=== PATIENT | male | born 1945 | race Caucasian/White ===

== ENCOUNTER 2017-05-01 16:56 | Inpatient (IN) | payer MEDICARE ==
[2017-05-01 16:58] VITALS: BMI 26.5
--- NOTE | 2017-05-01 17:39 | ED PDOC ---
Arrival/HPI - General Chief Complaint: Fever Time Seen by Provider: 05/01/17 17:14 Historian: Patient - History of Present Illness Narrative History of Present Illness (Text): 05/01/17 17:10 A 72 year old male, whose past medical history includes anemia, hypertension, diabetes, sinusitis, s/p pacemaker, s/p laminectomy(03/22), is sent from [facility] for fever. Patient reports fever began last night with temperature of 101. Patient denies of any chills, shortness of breath, cough, nausea, vomiting , diarrhea, abdominal pain, constipation, congestions, sore throat, chest pain, dysuria, rash, or any other complaints at this time. Also, patient notes experiencing back pain around surgical sight, which has not changed. No PMD Past Medical History - Provider Review Nursing Documentation Reviewed: Yes - Infectious Disease Hx of Infectious Diseases: None - Cardiac Hx Hypertension: Yes Hx Pacemaker: Yes - Endocrine/Metabolic Hx Diabetes Mellitus Type 2: Yes - Hematological/Oncological Hx Anemia: Yes - Musculoskeletal/Rheumatological Hx Back Pain: Yes Hx Falls: Yes - Psychiatric Hx Substance Use: No - Surgical History Other/Comment: s/p laminectomy - Anesthesia Hx Anesthesia: Yes Hx Anesthesia Reactions: No Hx Malignant Hyperthermia: No Family/Social History - Physician Review Nursing Documentation Reviewed: Yes Family/Social History: No Known Family HX Smoking Status: Never Smoked Hx Alcohol Use: No Hx Substance Use: No Allergies/Home Meds Allergies/Adverse Reactions: Allergies No Known Allergies Allergy (Verified 05/01/17 16:58) Home Medications: Home Meds Medication Instructions Recorded Confirmed Atorvastatin [Lipitor] 1 tab PO DAILY 05/01/17 05/01/17 Bisacodyl [Dulcolax] 2 tab PO DAILY 05/01/17 05/01/17 Gabapentin [Neurontin] 1 tab PO TID 05/01/17 05/01/17 Insulin Aspart [Novolog Flexpen] See Protocol SC ACHS 05/01/17 05/01/17 Isosorbide Mononitrate [Isosorbide 60 mg PO DAILY 05/01/17 05/01/17 Mononitrate ER] Lidocaine [Lidocare] 1 patch TOP DAILY 05/01/17 05/01/17 Metoprolol Tartrate [Lopressor] 1 tab PO BID 05/01/17 05/01/17 Pantoprazole Sodium [Protonix] 1 tab PO DAILY 05/01/17 05/01/17 Ranitidine HCl [Zantac] 1 tab PO DAILY 05/01/17 05/01/17 Sitagliptin Phos/Metformin HCl 1 tab PO BID 05/01/17 05/01/17 [Janumet 50-500 mg Tablet] Tamsulosin [Flomax] 1 cap PO DAILY 05/01/17 05/01/17 Tizanidine HCl [Zanaflex] 1 tab PO TID 05/01/17 05/01/17 Valsartan [Diovan] 1 tab PO DAILY 05/01/17 05/01/17 oxyCODONE/Acetaminophen [Percocet 1 tab PO BID PRN 05/01/17 05/01/17 5/325 mg Tab] traMADol [Ultram] 1 tab PO TID 05/01/17 05/01/17 Review of Systems - Physician Review All systems were reviewed & negative as marked: Yes - Review of Systems Constitutional: Fevers Respiratory: absent: SOB Physical Exam - Physical Exam Narrative Physical Exam (Text): Constitutional: No acute distress. Head: Normocephalic. Atraumatic. ENT: Moist mucous membranes. No erythema. No exudates. Neck: Supple. Cardiovascular: Tachycardic. Chest: No tenderness. Respiratory: Clear to auscultation bilaterally. GI: Soft. Nontender. Nondistended. Back: No CVA tenderness. Lumbar midline surgical incision which appears well- healed, with no surrounding erythema, swelling, or tenderness. Musculoskeletal: No tenderness or swelling of extremities. Skin: No rash. Neurologic: Alert, no focal deficit. Vital Signs Reviewed: Yes Vital Signs Temp Pulse Resp BP Pulse Ox 05/01/17 18:46 99 F 104 H 18 157/78 H 97 05/01/17 17:54 100.3 F H 05/01/17 17:03 100.3 F H 105 H 18 160/89 H 98 Temperature: Febrile Blood Pressure: Hypertensive Pulse: Tachycardic Respiratory Rate: Normal Appearance: Positive for: Well-Appearing Pain Distress: None Mental Status: Positive for: Alert and Oriented X 3 Medical Decision Making ED Course and Treatment: 05/01/17 17:14 Impression: 72 year old male with fever. Physical exam shows patient is tachycardic; throat has no erythema or exudates; lumbar midline back incision that appears well-healed, with no surrounding erythema, swelling, or tenderness. Plan: -- EKG -- Chest X-ray -- Labs -- Tylenol -- Blood Culture -- Urine Culture -- Urinalysis -- Serology -- Venous Blood Gas -- Reassess and disposition Progress Notes: EKG: Ordered, reviewed, and independently interpreted the EKG. Rate : 110 BPM Rhythm : Sinus Rhythm Interpretation : No ST-segment elevations. Comparison : No previous EKG for comparison. 05/01/17 18:56 CXR with R lower consolidation. Will treat as HCAP. Antibiotics initiated. Lactate normal, no CODE SEPSIS. No hypotension. Dr. Espino accepts with Dr. Aguilera on consult. - Lab Interpretations Lab Results: 05/01/17 17:40 05/01/17 17:40 Lab Results 05/01/17 18:00: Urine Color Yellow, Urine Appearance Clear, Urine pH 6.0, Ur Specific [place] 1.025, Urine Protein 100 H, Urine Glucose (UA) Negative, Urine Ketones Trace H, Urine Blood Negative, Urine Nitrate Negative, Urine Bilirubin Negative, Urine Urobilinogen 0.2, Ur Leukocyte Esterase Negative, Urine RBC Pending, Urine WBC Pending 05/01/17 17:40: Sodium 135, Chloride 100, Potassium 5.0, Carbon Dioxide 24, Anion Gap 16, BUN 21, Creatinine 1.2, Est GFR ( Amer) > 60, Est GFR (Non- Af Amer) 59, Random Glucose 141 H, Calcium 9.4, Phosphorus 4.6 H, Magnesium 2.0 , Total Bilirubin 0.3, AST 50, ALT 32, Alkaline Phosphatase 145 H, Total Protein 8.4 H, Albumin 4.1, Globulin 4.2, Albumin/Globulin Ratio 1.0 L 05/01/17 17:40: pO2 58 H, VBG pH 7.39, VBG pCO2 41.0, VBG HCO3 24.8, VBG Total CO2 26.1, VBG O2 Sat (Calc) 92.8 H, VBG Base Excess -0.2 L, VBG Potassium 5.0, Sodium 132.0, Chloride 101.0, Glucose 142 H, Lactate 1.9, FiO2 21.0, Venous Blood Potassium 5.0 05/01/17 17:40: PT 12.7 H, INR 1.11 H, APTT 28.3 05/01/17 17:40: WBC 7.0, RBC 3.85, Hgb 10.1 L, Hct 30.6 L, MCV 79.5 L, MCH 26.2 , MCHC 33.0, RDW 14.7 H, Plt Count 305, MPV 10.1, Gran % 55.8, Lymph % (Auto) 27.2, Clinch % (Auto) 12.7 H, Eos % (Auto) 4.0, Baso % (Auto) 0.3, Gran # 3.88, Lymph # 1.9, Clinch # 0.9 H, Eos # 0.3, Baso # 0.02 - RAD Interpretation Radiology Orders: 05/01/17 17:14 CHEST PORTABLE [RAD] Stat - Medication Orders Current Medication Orders: Levofloxacin/Dextrose (Levaquin 750mg) 750 mg in 150 mls @ 100 mls/hr IVPB STAT STA PRN Reason: Protocol Stop: 05/01/17 20:20 Cefepime HCl (Maxipime 2gm) 2 gm in 100 mls @ 100 mls/hr IVPB STAT STA PRN Reason: Protocol Stop: 05/01/17 19:50 Piperacillin Sod/Tazobactam Sod (Zosyn 4.5 Gm In Ns 100ml) 4.5 gm in 100 mls @ 200 mls/hr IVPB STAT STA PRN Reason: Protocol Stop: 05/01/17 19:20 Discontinued Medications Acetaminophen (Tylenol 325mg Tab) 650 mg PO STAT STA Stop: 05/01/17 17:23 Last Admin: 05/01/17 17:54 Dose: 650 mg MAR Pain/Vitals Document 05/01/17 17:54 RD (Rec: 05/01/17 17:54 [id number]) Pain Reassessment Is This A Pain ReAssessment? No Sleep Is patient sleeping during reassessment? No Presence of Pain Presence of Pain No Vitals Temperature (97.6 F-99.6 F) 100.3 F Temperature Source Oral - Scribe Statement The provider has reviewed the documentation as recorded by the [employer] Provider Scribe Attestation: All medical record entries made by the Scribpaulette were at my direction and personally dictated by me. I have reviewed the chart and agree that the record accurately reflects my personal performance of the history, physical exam, medical decision making, and the department course for this patient. I have also personally directed, reviewed, and agree with the discharge instructions and disposition. Disposition/Present on Arrival - Present on Arrival Any Indicators Present on Arrival: No History of DVT/PE: No History of Uncontrolled Diabetes: No Urinary Catheter: No History of Decub. Ulcer: No History Surgical Site Infection Following: Orthopedic Procedures - Disposition Have Diagnosis and Disposition been Completed?: Yes Diagnosis: Pneumonia Disposition: HOSPITALIZED Disposition Time: 18:57 Patient Plan: Admission, Telemetry Condition: GUARDED Forms: [employer] ([place]ayan)
[2017-05-01 18:05] LABS: VENOUS BLOOD GAS BASE EXCESS -0.2 mmol/L (0.0-2.0); VENOUS BLOOD GAS PO2 58 mm/Hg (30-55); VENOUS BLOOD PH 7.39 (7.32-7.43)
[2017-05-01 18:10] LABS: ALBUMIN 4.1 g/dL (3.0-4.8); ALT/SGPT 32 U/L (7-56); AST/SGOT 50 U/L (17-59); BLOOD UREA NITROGEN 21 mg/dL (7-21); CALCIUM 9.4 mg/dL (8.4-10.5); GFR AFRICAN-AMERICAN > 60; GFR NON-AFRICAN AMERICAN 59
[2017-05-01 18:31] LABS: BASO # 0.02 K/mm3 (0.0-2.0); BASO % 0.3 % (0.0-3.0); EOS # 0.3 (0.0-0.7); GRAN # 3.88 (1.4-6.5); GRAN % 55.8 % (50.0-68.0); HEMOGLOBIN 10.1 g/dL (14.0-18.0); LYMPH # 1.9 (1.2-3.4); LYMPH % 27.2 % (22.0-35.0); MEAN CELL VOLUME 79.5 fl (80.0-105.0); MEAN CORPUSCULAR HEMOGLOBIN 26.2 pg (25.0-35.0); MEAN PLATELET VOLUME 10.1 fl (7.0-11.0); MONO # 0.9 (0.1-0.6); MONO % 12.7 % (1.0-6.0); RBC 3.85 10^6/uL (3.5-6.1); RED CELL DISTRIBUTION WIDTH 14.7 % (11.5-14.5)
[2017-05-01 18:37] LABS: URINE BILIRUBIN NEGATIVE (NEGATIVE); URINE BLOOD NEGATIVE (NEGATIVE); URINE GLUCOSE (UA) NEGATIVE (NEGATIVE); URINE LEUKOCYTE ESTERASE NEGATIVE Leu/uL (NEGATIVE); URINE NITRATE NEGATIVE (NEGATIVE); URINE PROTEIN 100 mg/dL (<30 mg/dL); URINE UROBILINOGEN 0.2 E.U./dL (<1 E.U./dL)
[2017-05-01 18:38] LABS: INR 1.11 (0.93-1.08); PROTHROMBIN TIME 12.7 SECONDS (9.4-12.5)
[2017-05-01 18:39] LABS: PARTIAL THROMBOPLASTIN TIME 28.3 Seconds (25.1-36.5)
[2017-05-01 18:40] LABS: URINE APPEARANCE CLEAR (CLEAR); URINE COLOR YELLOW (YELLOW)
[2017-05-01] MEDS ORDERED: Cefepime IV 2 gm in NS 2 GM/100 ML BAG IVPB STA (18:51)
[2017-05-01] MEDS ORDERED: Piperacill/Tazo 4.5gm in NS 4.5 GM/100 ML BAG IVPB STA (18:51)
[2017-05-01] MEDS ORDERED: levoFLOXacin 750 mg in D5W 750 MG/150 ML BAG IVPB STA (18:51)
[2017-05-01 18:59] LABS: URINE BACTERIA NEG (NEG); URINE RBC 0 - 2 /hpf (0-2); URINE WBC 0 - 2 /hpf (0-6)
[2017-05-02] MEDS: Albuterol-Ipratrop 3 mg / 0.5 (3 ml) UD IH SCH ×4 (03:39→21:11)
--- NOTE | 2017-05-02 07:37 | RAD ---
HISTORY: Sepsis Patient COMPARISON: No prior. FINDINGS: LUNGS: No active pulmonary disease. PLEURA: No significant pleural effusion identified, no pneumothorax apparent. CARDIOVASCULAR: Normal. Pacemaker leads in place. Atherosclerotic aorta. OSSEOUS STRUCTURES: No significant abnormalities. VISUALIZED UPPER ABDOMEN: Normal. OTHER FINDINGS: None. IMPRESSION: No active disease.
[2017-05-02] MEDS: HYDROmorphone 0.5 mg/0.5 ml ISec IVP PRN ×2 (07:44→11:55)
[2017-05-02] MEDS: Insulin Reg-LOW-Coverage SC SCH ×4 (07:46→21:52)
[2017-05-02 08:37] LABS: HEMOGLOBIN 9.2 g/dL (14.0-18.0); MEAN CELL VOLUME 78.6 fl (80.0-105.0); MEAN CORPUSCULAR HEMOGLOBIN 25.6 pg (25.0-35.0); MEAN CORPUSCULAR HGB CONC 32.5 g/dl (31.0-37.0); MEAN PLATELET VOLUME 9.3 fl (7.0-11.0); RBC 3.6 10^6/uL (3.5-6.1); RED CELL DISTRIBUTION WIDTH 14.6 % (11.5-14.5)
[2017-05-02 09:00] LABS: IRON 25 ug/dL (45-180)
[2017-05-02 09:07] LABS: BLOOD UREA NITROGEN 16 mg/dL (7-21); CALCIUM 8.8 mg/dL (8.4-10.5); GFR AFRICAN-AMERICAN > 60; GFR NON-AFRICAN AMERICAN > 60; HDL CHOLESTEROL 28 mg/dL (29-60); LDL CHOLESTEROL < 30 mg/dL (0-129)
[2017-05-02 09:09] LABS: TOTAL IRON BINDING CAPACITY 217 ug/dL (261-462)
[2017-05-02] MEDS: cefTRIAXone 1 gm 1 GM/100 ML BAG IVPB SCH (09:30)
[2017-05-02 09:31] LABS: % IRON SATURATION 12 % (20-55)
[2017-05-02] MEDS ORDERED: Pantoprazole 40 mg EC Tab PO SCH (10:00)
[2017-05-02] MEDS ORDERED: Azithromycin 500MG/NS 250ml 500 MG/250 ML BAG IVPB SCH (10:00)
[2017-05-02] MEDS ORDERED: Azithromycin 500 MG in Sodium Chloride 0.9% 250 ML IVPB SCH (10:00)
[2017-05-02] MEDS ORDERED: Non Formulary Medication (Sitagliptin Phos/Metformin Hcl [Janumet 50-500 Mg Tablet] 1 TAB) PO SCH (10:00)
[2017-05-02] MEDS: Lidocaine 5% Patch TD SCH (11:33)
[2017-05-02] MEDS: Bisacodyl 5mg EC Tab PO SCH (11:34)
--- NOTE | 2017-05-02 12:10 | CARD ---
APPROVED REPORT EKG Measurement Heart [id number] <Conclusion> Poor data quality, interpretation may be adversely affected Sinus tachycardia Nonspecific ST abnormality Q wave in III,avf Abnormal ECG
--- NOTE | 2017-05-03 01:28 | HP ---
CHIEF COMPLAINT: Fever, not feeling very well. HISTORY OF PRESENT ILLNESS: Mr. Jacob Meyer is a 72-year-old male with past medical history of anemia, hypertension, diabetes mellitus, sinusitis, status post pacemaker, status post laminectomy on 03/22/2017, [facility] and started high-grade fever. The patient notes fever began last night with a temperature of 101 then went up. The patient denies any nausea, vomiting or diarrhea, abdominal pain, constipation, congestion, sore throat, chest pain, or rash. Also, the patient noticed experiencing back pain around the surgical site, which has not changed. PAST MEDICAL HISTORY: Hypertension, pacemaker, diabetes mellitus type 2, anemia, history of fall. FAMILY HISTORY: Father and mother noncontributory. HABITS: Never smoker. No drugs, no ethanal. ALLERGIES: THE PATIENT IS NOT ALLERGIC WITH ANY MEDICATIONS. HOME MEDICATIONS: Lipitor, Dulcolax, Neurontin, NovoLog, isosorbide, lidocaine, Lopressor, Protonix, Zantac, Janumet, Flomax, Zanaflex, Diovan, oxycodone, tramadol. REVIEW OF SYSTEMS: The patient seen and examined on the bedside in his room, feeling feverish. No nausea, vomiting, or diarrhea. No chills. Complaining about back pain, going towards the legs. No headache. No dizziness. No hematuria. No hematochezia. PHYSICAL EXAMINATION: VITAL SIGNS: Temperature 98, pulse 64, blood pressure 101/58, respiratory rate 18. HEENT: Head is normocephalic and atraumatic. Eyes; PERRLA. Extraocular muscles are intact. Conjunctivae clear. Nose patent. Mucous membranes moist. NECK: Supple. No carotid bruit. No JVD or thyromegaly. CHEST: Bilaterally symmetrical. HEART: S1 and S2 positive. LUNGS: Clear to auscultation. ABDOMEN: Soft. Bowel sounds present. No organomegaly. EXTREMITIES: No edema. No cyanosis. NEUROLOGICAL: The patient is awake and alert. Moving all four extremities. No focal deficits. MEDICATIONS: Cozaar, Dilaudid, Dulcolax, DuoNeb, Flomax, Flonase, metformin, insulin, Januvia, Imdur, Lipitor, Lopressor, Neurontin, Pepcid, Protonix, Rocephin, Tylenol, tramadol, Zanaflex. LABORATORY DATA: White blood cell 7.0, hemoglobin 9.2, hematocrit 28.3, platelets 258. Sodium 133, potassium 4.4, BUN 16, creatinine 1.0, glucose 127, iron 25. ASSESSMENT AND PLAN: Mr. Jacob Meyer is a 72-year-old male with anemia, hypoglycemia, hyperphosphatemia, iron deficiency, abnormal liver function test, proteinuria, ketonuria, [facility] l[facility]ctomy in the lumbar area, history of hypertension, sinusitis, pacemaker, laminectomy done on 03/22/2017, rule out sepsis, history of back pain, history of fall, history of benign prosthetic hypertrophy, has pneumonia, chest x-ray reviewed by me. According to chest x-ray; no active disease. We will do CAT scan of the chest. We admitted the patient, put consult with Dr. Aguilera. Restarted Cozaar, pain management hydromorphone q. 4 hours, but according to the patient states he is in pain, give Dulcolax for constipation, put insulin sliding scale low algorithm, getting Januvia, started on antibiotics. Piperacillin is given by ER. I started on Rocephin. The patient got his cefepime from ER. Continue present treatment. GI/DVT prophylaxis, start physical therapy for back radiculopathy and pain management. We will follow up. Sandra Espino MD
--- NOTE | 2017-05-03 02:01 | CP.PCM.PCO ---
Physician Communication Note - Physician Communication Note Physician Communication Note: chart reviewed. fevers. on rocephin currently
--- NOTE | 2017-05-03 04:04 | CON ---
DATE: 05/02/2017 PULMONARY CONSULTATION REFERRING PHYSICIAN: Sandra Espino MD REASON FOR CONSULTATION: Sepsis, fever, history of sinusitis, recently had lumbar laminectomy, was at Rehab, developed fever up to 101. No chest pain. No nausea, no vomiting. No diarrhea. No leg pain or leg swelling. PAST MEDICAL HISTORY: Anemia, hypertension, diabetes, sinusitis, cardiac arrhythmia requiring pacemaker, status post lumbar laminectomy about a month or so ago. SOCIAL HISTORY: No history of smoking or alcohol use. FAMILY HISTORY: No significant cardiopulmonary disease reported. ALLERGIES: NONE KNOWN. MEDICATIONS: He is on Cozaar 100 mg daily, Dilaudid 0.5 mg q.4 hours p.r.n., Dulcolax 10 mg daily, DuoNeb q.6 hours, Flomax 0.4 mg daily, metformin 500 mg twice a day, insulin coverage, Imdur 60 mg daily, Januvia 50 mg twice a day, Lidoderm patch daily, Lipitor 20 mg daily, metoprolol tartrate 25 mg twice a day, Neurontin 600 mg q.8 hours, Pepcid 40 mg daily Protonix 40 mg daily, Rocephin 1 g daily, Tylenol p.r.n., Ultram 50 mg q.8 hours, Zanaflex 4 mg q.8 hours, and Zithromax 500 mg daily. REVIEW OF SYSTEMS: No headache, no rhinitis. Admit to have snoring, daytime sleepy and tired. No chest pain. No nausea, no vomiting. No abdominal pain. Has low back pain. No dysuria. No leg pain or leg swelling. PHYSICAL EXAMINATION: GENERAL: Lying in the bed, no acute distress. VITAL SIGNS: Temp is 98, T max of 100.3, heart rate 64, respiratory rate is 20, blood pressure 101/58, pulse of 95% on room air. HEENT: Moist mucous membrane. Crowded airway. Mallampati score is 4. NECK: Short thick neck. LUNGS: Have diffuse scattered rhonchi. HEART: S1 and S2. ABDOMEN: Soft, nontender. No organomegaly. Has tenderness in low back, has a Lidoderm patch in affected area. EXTREMITIES: There is no edema. NEUROLOGIC: Awake and alert, follows simple commands. LABORATORY DATA: Shows hemoglobin 9.2, hematocrit 28.3, WBC 7.0, platelet is 258. INR 1.1. PTT is 28. Blood gases show, which is VBG, pH 7.39, pCO2 of 41, and O2 of 58. Sodium 133, potassium 4.4, chloride 102, bicarbonate 22, BUN 16, creatinine 1.0, glucose 127, calcium 8.8, phosphorus 4.6, magnesium 2.0. Iron is 25. Total bilirubin 0.3. AST 50, ALT 32, and alkaline phosphatase is 145. Albumin is 4.1. Cholesterol is 77. B12 and folate are pending. Urinalysis shows wbc's 0-2, rbc's 0-2. Influenza A and B are negative. Microbiology: Blood culture, one set is done, which is negative. Chest x-ray shows there is no infiltrate. IMPRESSION AND PLAN: Sepsis, healthcare associated; fever up to 101, recently had a lumbar laminectomy . Cardiac arrhythmia requiring pacemaker, history of sinusitis, diabetes, hypertension, and anemia. May need to get MRI of low back to assure there is no osteo or abscess. Add inhaled bronchodilator, Flonase and nasal saline to the nose. Gastric and DVT prophylaxis. Thank you, and we will follow with you. Hali Aguilera MD
[2017-05-03] MEDS: Pantoprazole 40 mg EC Tab PO SCH (05:50)
[2017-05-03] MEDS: Albuterol-Ipratrop 3 mg / 0.5 (3 ml) UD IH SCH ×3 (08:41→21:30)
--- NOTE | 2017-05-03 09:28 | CT ---
PROCEDURE: CT Chest without contrast HISTORY: Fever, pneumonia COMPARISON: 05/01/2017 single-view chest TECHNIQUE: Contiguous axial images were obtained through the chest without intravenous contrast enhancement. Sagittal and coronal reconstructions were performed. Radiation dose (DLP): 342.42 mGy-cm. This CT exam was performed using one or more of the following dose reduction techniques: Automated exposure control, adjustment of the mA and/or kV according to patient size, and/or use of iterative reconstruction technique. FINDINGS: LUNGS: Faint, multifocal infiltrates affecting right lower lobe, left upper lobe, right upper lobe. Findings likely infectious/ inflammatory. No suspicious pulmonary nodules or masses. MEDIASTINUM: Unremarkable thoracic aorta. No aneurysm. Cardiomegaly. No evidence of acute, significant cardiovascular disease. Position/ configuration of pacemaker unremarkable. No vascular congestion. No lymphadenopathy. PLEURA: No pleural fluid. No pneumothorax. BONES: No fracture. No destructive lesion. UPPER ABDOMEN: Grossly unremarkable. OTHER FINDINGS: None. IMPRESSION: Faint multifocal subsegmental infiltrates likely infectious/ inflammatory.
--- NOTE | 2017-05-03 10:07 | CT ---
PROCEDURE: CT Lumbar Spine without contrast HISTORY: s/ laminectomy, r/o abscess COMPARISON: None. TECHNIQUE: Axial computed tomography images were obtained of the lumbar spine without the use of intravenous contrast. Coronal and sagittal reformatted images were created and reviewed. Radiation dose: Total exam DLP = 374 mGy-cm. This CT exam was performed using one or more of the following dose reduction techniques: Automated exposure control, adjustment of the mA and/or kV according to patient size, and/or use of iterative reconstruction technique. FINDINGS: VERTEBRAE: There are no vertebral compression fractures. There has been a laminectomy from L3 through L5. DISCS/SPINAL CANAL/NEURAL FORAMINA: L1-2: Unremarkable. L2-3: Unremarkable. L3-4: There is severe disc degeneration with irregularity of the endplate and loss of disc height. L4-5: There is severe disc degeneration with irregularity of the endplate and loss of disc height. L5-S1: Unremarkable. PARASPINAL SOFT TISSUES: Unremarkable. OTHER FINDINGS: None. IMPRESSION: Severe disc degeneration at L3-4 and L4-5. Laminectomy from L3 through L5. No obvious fluid collection to suggest abscess.
[2017-05-03] MEDS: cefTRIAXone 1 gm 1 GM/100 ML BAG IVPB SCH (11:19)
[2017-05-03] MEDS: Bisacodyl 5mg EC Tab PO SCH (11:20)
[2017-05-03] MEDS: Lidocaine 5% Patch TD SCH (11:21)
[2017-05-03] MEDS: Insulin Reg-LOW-Coverage SC SCH ×3 (11:28→18:01)
[2017-05-03] MEDS: HYDROmorphone 0.5 mg/0.5 ml ISec IVP PRN (11:28)
[2017-05-03] MEDS: Fluticasone Nasal 50 mcg/Spray NS SCH (12:06)
--- NOTE | 2017-05-03 12:43 | CP.PCM.PN ---
<Marianna Duarte - Last Filed: 05/04/17 01:24> Subjective - Date & Time of Evaluation Date of Evaluation: 05/03/17 Time of Evaluation: 11:00 - Subjective Subjective: 72 yr male w/ history of Anemia, iron deficiency, HTN, DM, Spinal stenosis, BPH, Cholelithiasis w/ obstruction, GERD, Sick sinus syndrome and pacemaker. previously resident of [facility] w/ history of Laminectomy L3-S1 03/22/2017. Pt appears confused and unable to complete his thoughts. Patient denies of any chills, shortness of breath, cough, nausea, vomiting, diarrhea, abdominal pain, constipation, congestions, sore throat, chest pain, dysuria, rash, or any other complaints at this time. Objective - Vital Signs/Intake and Output Vital Signs (last 24 hours): Temp Pulse Resp BP Pulse Ox 99.0 F 100 H 20 150/78 96 05/03/17 06:00 05/03/17 11:20 05/03/17 06:00 05/03/17 11:20 05/03/17 06:00 - Medications Medications: Current Medications Acetaminophen (Tylenol 325mg Tab) 650 mg PO Q4H PRN PRN Reason: pain fever Albuterol/Ipratropium (Duoneb 3 Mg/0.5 Mg (3 Ml) Ud) 3 ml IH [id number] REPLACED BY [facility] Last Admin: 05/03/17 08:41 Dose: 3 ml Atorvastatin Calcium (Lipitor) 20 mg PO DIN REPLACED BY [facility] Bisacodyl (Dulcolax) 10 mg PO DAILY REPLACED BY [facility] Last Admin: 05/03/17 11:20 Dose: 10 mg Fentanyl (Duragesic) 1 patch TD Q72H REPLACED BY [facility] Last Admin: 05/02/17 19:12 Dose: 1 patch Fluticasone Propionate (Flonase) 1 actuation NS DAILY REPLACED BY [facility] Last Admin: 05/03/17 12:06 Dose: 2 spr Gabapentin (Neurontin) 600 mg PO Q8 REPLACED BY [facility] PRN Reason: Protocol Last Admin: 05/03/17 05:50 Dose: 600 mg Hydromorphone HCl (Dilaudid) 0.5 mg IVP Q4H PRN PRN Reason: Pain, Mild (1-3) Last Admin: 05/03/17 11:28 Dose: 0.5 mg Ceftriaxone Sodium (Rocephin 1 Gram Ivpb) 1 gm in 100 mls @ 100 mls/hr IVPB DAILY REPLACED BY [facility] PRN Reason: Protocol Last Admin: 05/03/17 11:19 Dose: 100 mls/hr Insulin Human Regular (Humulin R Low) 0 units SC ACHS REPLACED BY [facility] PRN Reason: Protocol Last Admin: 05/03/17 11:35 Dose: Not Given Isosorbide Mononitrate (Imdur) 60 mg PO DAILY REPLACED BY [facility] Last Admin: 05/03/17 11:20 Dose: 60 mg Lidocaine (Lidoderm) 1 ea TD DAILY REPLACED BY [facility] Last Admin: 05/03/17 11:21 Dose: 1 ea Losartan Potassium (Cozaar) 100 mg PO DAILY REPLACED BY [facility] Last Admin: 05/03/17 11:20 Dose: 100 mg Metformin HCl (Glucophage) 500 mg PO BID REPLACED BY [facility] Last Admin: 05/03/17 11:20 Dose: 500 mg Metoprolol Tartrate (Lopressor) 25 mg PO BID REPLACED BY [facility] Last Admin: 05/03/17 11:20 Dose: 25 mg Pantoprazole Sodium (Protonix Ec Tab) 40 mg PO 0600 REPLACED BY [facility] Last Admin: 05/03/17 05:50 Dose: 40 mg Sennosides (Senokot Tab) 17.2 mg PO HS REPLACED BY [facility] Last Admin: 05/02/17 21:51 Dose: 17.2 mg Sitagliptin Phosphate (Januvia) 50 mg PO BID REPLACED BY [facility] Last Admin: 05/03/17 11:20 Dose: 50 mg Tamsulosin HCl (Flomax) 0.4 mg PO DAILY REPLACED BY [facility] Last Admin: 05/03/17 11:20 Dose: 0.4 mg Tizanidine HCl (Zanaflex) 4 mg PO Q8 REPLACED BY [facility] Last Admin: 05/03/17 05:50 Dose: 4 mg Tramadol HCl (Ultram) 50 mg PO Q8 REPLACED BY [facility] Last Admin: 05/03/17 05:50 Dose: 50 mg - Labs Labs: 05/02/17 08:00 05/02/17 08:00 PT 12.7 SECONDS (9.4-12.5) H 05/01/17 17:40 INR 1.11 (0.93-1.08) H 05/01/17 17:40 APTT 28.3 Seconds (25.1-36.5) 05/01/17 17:40 - Constitutional Appears: Chronically Ill - Head Exam Head Exam: ATRAUMATIC, NORMAL INSPECTION, NORMOCEPHALIC - Eye Exam Eye Exam: EOMI, Normal appearance, PERRL - ENT Exam ENT Exam: Mucous Membranes Moist, Normal Exam - Neck Exam Neck Exam: Full ROM, Normal Inspection. absent: Lymphadenopathy - Respiratory Exam Respiratory Exam: Clear to Ausculation Bilateral, NORMAL BREATHING PATTERN - Cardiovascular Exam Cardiovascular Exam: REGULAR RHYTHM, +S1, +S2. absent: Murmur - GI/Abdominal Exam GI & Abdominal Exam: Soft, Normal Bowel Sounds. absent: Tenderness - Extremities Exam Extremities Exam: Full ROM, Normal Capillary Refill, Normal Inspection. absent : Joint Swelling, Pedal Edema - Back Exam Back Exam: muscle spasm, tenderness - Neurological Exam Neurological Exam: Alert, Awake, Oriented x3 - Psychiatric Exam Psychiatric exam: Normal Affect, Normal Mood - Skin Skin Exam: Dry, Intact, Normal Color, Warm Assessment and Plan (1) Fever Status: Acute (2) History of laminectomy Status: Acute (3) Back pain Status: Acute (4) Pneumonia Status: Acute - Assessment and Plan (Free Text) Plan: Labs BMP, TSH, CBC Blood cultures: pending IV rocephin GI/VTE prophylaxis PT onboard Pain management: ultram,dilaudid,zanaflex, lidocaine patch, fentanyl Consults ID - Dr. Orellana - low grade fevers, rochepin antibiotic, CT chest, cultures, supportive care, evaluation of pneumonia Pulmonary - Dr. Aguilera - may need MR low back r/o absces, add inhaled bronchodilater, flonase, nasal saline Reviewed: CT chest = faint multifocal subsegmental likely infectious/inflammatory CT lumbar spine = Severe disc degeneration L3-L4-L5, laminectomy from L3-L5, no obvious fluid collection to suggest abscess CXR = WNL ECG = ABNORMAL - sinus tachycardia, nonspecific ST abnormality, Q wave in III, avf <Sandra Espino - Last Filed: 05/04/17 15:38> Subjective - Subjective Subjective: 70 yr female w/ history pancreatic cancer (pancreatic/stomach/ stage III/dx 02/2016), s/p chemotherapy 11/10/2016, HTN, prediabetes, and cholecystecomy. She received a phone call today to return to the hospital after positive blood cultures. She was seen in the ED for abdominal pain relieved by IVF. Today she reports 8 out of 10 pain in the head, back, and LLQ of abdomen. She reports feeling constipated. She denies any shortness of breath, chest pain , nausea, vomiting, diarrhea, or urinary changes. Patient's daughters are at the bedside.pt is seen and examined at bed side , looking comfortable , agreed all above , will cont. same treatment . will f/u Objective - Vital Signs/Intake and Output Vital Signs (last 24 hours): Temp Pulse Resp BP Pulse Ox 97.9 F 94 H 18 150/76 95 05/04/17 06:00 05/04/17 09:34 05/04/17 06:00 05/04/17 09:34 05/04/17 06:00 - Medications Medications: Current Medications Acetaminophen (Tylenol 325mg Tab) 650 mg PO Q4H PRN PRN Reason: pain fever Last Admin: 05/04/17 09:40 Dose: 650 mg Albuterol/Ipratropium (Duoneb 3 Mg/0.5 Mg (3 Ml) Ud) 3 ml IH [id number] REPLACED BY [facility] Last Admin: 05/04/17 07:50 Dose: 3 ml Atorvastatin Calcium (Lipitor) 20 mg PO DIN REPLACED BY [facility] Last Admin: 05/03/17 18:03 Dose: 20 mg Bisacodyl (Dulcolax) 10 mg PO DAILY REPLACED BY [facility] Last Admin: 05/04/17 09:34 Dose: 10 mg Fentanyl (Duragesic) 1 patch TD Q72H REPLACED BY [facility] Last Admin: 05/02/17 19:12 Dose: 1 patch Fluticasone Propionate (Flonase) 1 actuation NS DAILY REPLACED BY [facility] Last Admin: 05/04/17 09:35 Dose: 2 spr Gabapentin (Neurontin) 600 mg PO Q8 REPLACED BY [facility] PRN Reason: Protocol Last Admin: 05/03/17 15:32 Dose: 600 mg Hydromorphone HCl (Dilaudid) 0.5 mg IVP Q4H PRN PRN Reason: Pain, Mild (1-3) Last Admin: 05/03/17 11:28 Dose: 0.5 mg Ceftriaxone Sodium (Rocephin 1 Gram Ivpb) 1 gm in 100 mls @ 100 mls/hr IVPB DAILY REPLACED BY [facility] PRN Reason: Protocol Last Admin: 05/04/17 09:34 Dose: 100 mls/hr Insulin Human Regular (Humulin R Low) 0 units SC ACHS REPLACED BY [facility] PRN Reason: Protocol Last Admin: 05/04/17 12:42 Dose: 1 units Isosorbide Mononitrate (Imdur) 60 mg PO DAILY REPLACED BY [facility] Last Admin: 05/04/17 09:34 Dose: 60 mg Lidocaine (Lidoderm) 1 ea TD DAILY REPLACED BY [facility] Last Admin: 05/04/17 09:33 Dose: 1 ea Losartan Potassium (Cozaar) 100 mg PO DAILY REPLACED BY [facility] Last Admin: 05/04/17 09:33 Dose: 100 mg Metformin HCl (Glucophage) 500 mg PO BID REPLACED BY [facility] Last Admin: 05/04/17 09:34 Dose: 500 mg Metoprolol Tartrate (Lopressor) 25 mg PO BID REPLACED BY [facility] Last Admin: 05/04/17 09:34 Dose: 25 mg Pantoprazole Sodium (Protonix Ec Tab) 40 mg PO 0600 REPLACED BY [facility] Last Admin: 05/04/17 05:42 Dose: 40 mg Sennosides (Senokot Tab) 17.2 mg PO HS REPLACED BY [facility] Last Admin: 05/03/17 21:42 Dose: 17.2 mg Sitagliptin Phosphate (Januvia) 50 mg PO BID REPLACED BY [facility] Last Admin: 05/04/17 09:34 Dose: 50 mg Tamsulosin HCl (Flomax) 0.4 mg PO DAILY REPLACED BY [facility] Last Admin: 05/04/17 09:34 Dose: 0.4 mg Tizanidine HCl (Zanaflex) 4 mg PO Q8 REPLACED BY [facility] Last Admin: 05/03/17 15:32 Dose: 4 mg Tramadol HCl (Ultram) 50 mg PO Q8 REPLACED BY [facility] Last Admin: 05/03/17 15:33 Dose: 50 mg - Labs Labs: 05/02/17 08:00 05/02/17 08:00 PT 12.7 SECONDS (9.4-12.5) H 05/01/17 17:40 INR 1.11 (0.93-1.08) H 05/01/17 17:40 APTT 28.3 Seconds (25.1-36.5) 05/01/17 17:40
[2017-05-03 17:41] LABS: FOLATE 6.9 ng/mL
--- NOTE | 2017-05-03 17:59 | CP.PCM.CON ---
History of Present Illness - History of Present Illness History of Present Illness: Infectious Disease Consultation: May 03, 2017 72 yo male with presentation of a fever up to 101 F. The patient was in [facility] for care after a recent laminectomy. His medical history includes anemia , hypertension, diabetes mellitus, sinusitis, pacemaker placement, recent lumbar laminectomy on 03/22/2017. The patient has pain still in the surgical site on the back. Cultures taken... blood cultures negative at 24 hours and urine culture with no growth. The patient temperature was no higher than 100.3 F so far in this hospitalization. Chest CT showing Faint multifocal segmental infiltrates. Supportive care. Currently on Ceftriaxone for antibiotic treatment at this time. No leukocytosis. Some renal insufficiency. PMHx: anemia, hypertension, diabetes mellitus, sinusitis PSHx: pacemaker placement Lumbar laminectomy 03/22/2017 Allergies: NKDA Social Hx: No tobacco, EtOH, or illicit drug use history Active Medications Acetaminophen (Tylenol 325mg Tab) 650 mg PO Q4H PRN PRN Reason: pain fever Albuterol/Ipratropium (Duoneb 3 Mg/0.5 Mg (3 Ml) Ud) 3 ml IH [id number] [facility] Last Admin: 05/03/17 14:11 Dose: 3 ml Atorvastatin Calcium (Lipitor) 20 mg PO DIN [facility] Bisacodyl (Dulcolax) 10 mg PO DAILY [facility] Last Admin: 05/03/17 11:20 Dose: 10 mg Fentanyl (Duragesic) 1 patch TD Q72H [facility] Last Admin: 05/02/17 19:12 Dose: 1 patch Fluticasone Propionate (Flonase) 1 actuation NS DAILY [facility] Last Admin: 05/03/17 12:06 Dose: 2 spr Gabapentin (Neurontin) 600 mg PO Q8 [facility] PRN Reason: Protocol Last Admin: 05/03/17 15:32 Dose: 600 mg Hydromorphone HCl (Dilaudid) 0.5 mg IVP Q4H PRN PRN Reason: Pain, Mild (1-3) Last Admin: 05/03/17 11:28 Dose: 0.5 mg Ceftriaxone Sodium (Rocephin 1 Gram Ivpb) 1 gm in 100 mls @ 100 mls/hr IVPB DAILY [facility] PRN Reason: Protocol Last Admin: 05/03/17 11:19 Dose: 100 mls/hr Insulin Human Regular (Humulin R Low) 0 units SC [facility] PRN Reason: Protocol Last Admin: 05/03/17 11:35 Dose: Not Given Isosorbide Mononitrate (Imdur) 60 mg PO DAILY [facility] Last Admin: 05/03/17 11:20 Dose: 60 mg Lidocaine (Lidoderm) 1 ea TD DAILY [facility] Last Admin: 05/03/17 11:21 Dose: 1 ea Losartan Potassium (Cozaar) 100 mg PO DAILY [facility] Last Admin: 05/03/17 11:20 Dose: 100 mg Metformin HCl (Glucophage) 500 mg PO BID [facility] Last Admin: 05/03/17 11:20 Dose: 500 mg Metoprolol Tartrate (Lopressor) 25 mg PO BID [facility] Last Admin: 05/03/17 11:20 Dose: 25 mg Pantoprazole Sodium (Protonix Ec Tab) 40 mg PO 0600 [facility] Last Admin: 05/03/17 05:50 Dose: 40 mg Sennosides (Senokot Tab) 17.2 mg PO HS [facility] Last Admin: 05/02/17 21:51 Dose: 17.2 mg Sitagliptin Phosphate (Januvia) 50 mg PO BID [facility] Last Admin: 05/03/17 11:20 Dose: 50 mg Tamsulosin HCl (Flomax) 0.4 mg PO DAILY [facility] Last Admin: 05/03/17 11:20 Dose: 0.4 mg Tizanidine HCl (Zanaflex) 4 mg PO Q8 [facility] Last Admin: 05/03/17 15:32 Dose: 4 mg Tramadol HCl (Ultram) 50 mg PO Q8 [facility] Last Admin: 05/03/17 15:33 Dose: 50 mg Family Hx: none given ROS: Fevers, chills, back pain. No chest pain, abdominal pain, melena, hematuria, hematemesis, hematochezia, depression, anxiety, diarrhea, headaches, dizziness, SOB, or LOC. Past Patient History - Infectious Disease Hx of Infectious Diseases: None - Past Social History Smoking Status: Never Smoked - CARDIAC Hx Cardiac Disorders: Yes Hx Pacemaker: Yes - PULMONARY Hx Asthma: Yes - NEUROLOGICAL Hx Neurological Disorder: No - HEENT Hx Deafness: Yes - RENAL Hx Chronic Kidney Disease: No - ENDOCRINE/METABOLIC Hx Diabetes Mellitus Type 2: Yes - HEMATOLOGICAL/ONCOLOGICAL Hx Blood Disorders: No - MUSCULOSKELETAL/RHEUMATOLOGICAL Hx Falls: Yes Hx Herniated Disk: Yes - GASTROINTESTINAL Hx Gastrointestinal Disorders: No - GENITOURINARY/GYNECOLOGICAL Hx Genitourinary Disorders: No - PSYCHIATRIC Hx Substance Use: No - SURGICAL HISTORY Hx Surgeries: Yes - ANESTHESIA Hx Anesthesia: Yes Hx Anesthesia Reactions: No Hx Malignant Hyperthermia: No Meds Allergies/Adverse Reactions: Allergies Allergy/AdvReac Type Severity Reaction Status Date / Time No Known Allergies Allergy Verified 05/01/17 16:58 - Medications Medications: Current Medications Acetaminophen (Tylenol 325mg Tab) 650 mg PO Q4H PRN PRN Reason: pain fever Albuterol/Ipratropium (Duoneb 3 Mg/0.5 Mg (3 Ml) Ud) 3 ml IH [id number] [facility] Last Admin: 05/03/17 14:11 Dose: 3 ml Atorvastatin Calcium (Lipitor) 20 mg PO DIN [facility] Bisacodyl (Dulcolax) 10 mg PO DAILY [facility] Last Admin: 05/03/17 11:20 Dose: 10 mg Fentanyl (Duragesic) 1 patch TD Q72H [facility] Last Admin: 05/02/17 19:12 Dose: 1 patch Fluticasone Propionate (Flonase) 1 actuation NS DAILY [facility] Last Admin: 05/03/17 12:06 Dose: 2 spr Gabapentin (Neurontin) 600 mg PO Q8 [facility] PRN Reason: Protocol Last Admin: 05/03/17 15:32 Dose: 600 mg Hydromorphone HCl (Dilaudid) 0.5 mg IVP Q4H PRN PRN Reason: Pain, Mild (1-3) Last Admin: 05/03/17 11:28 Dose: 0.5 mg Ceftriaxone Sodium (Rocephin 1 Gram Ivpb) 1 gm in 100 mls @ 100 mls/hr IVPB DAILY [facility] PRN Reason: Protocol Last Admin: 05/03/17 11:19 Dose: 100 mls/hr Insulin Human Regular (Humulin R Low) 0 units SC ACHS [facility] PRN Reason: Protocol Last Admin: 05/03/17 11:35 Dose: Not Given Isosorbide Mononitrate (Imdur) 60 mg PO DAILY [facility] Last Admin: 05/03/17 11:20 Dose: 60 mg Lidocaine (Lidoderm) 1 ea TD DAILY [facility] Last Admin: 05/03/17 11:21 Dose: 1 ea Losartan Potassium (Cozaar) 100 mg PO DAILY [facility] Last Admin: 05/03/17 11:20 Dose: 100 mg Metformin HCl (Glucophage) 500 mg PO BID [facility] Last Admin: 05/03/17 11:20 Dose: 500 mg Metoprolol Tartrate (Lopressor) 25 mg PO BID [facility] Last Admin: 05/03/17 11:20 Dose: 25 mg Pantoprazole Sodium (Protonix Ec Tab) 40 mg PO 0600 [facility] Last Admin: 05/03/17 05:50 Dose: 40 mg Sennosides (Senokot Tab) 17.2 mg PO HS [facility] Last Admin: 05/02/17 21:51 Dose: 17.2 mg Sitagliptin Phosphate (Januvia) 50 mg PO BID [facility] Last Admin: 05/03/17 11:20 Dose: 50 mg Tamsulosin HCl (Flomax) 0.4 mg PO DAILY [facility] Last Admin: 05/03/17 11:20 Dose: 0.4 mg Tizanidine HCl (Zanaflex) 4 mg PO Q8 [facility] Last Admin: 05/03/17 15:32 Dose: 4 mg Tramadol HCl (Ultram) 50 mg PO Q8 [facility] Last Admin: 05/03/17 15:33 Dose: 50 mg Physical Exam - Constitutional Appears: Non-toxic, No Acute Distress, Chronically Ill - Head Exam Head Exam: ATRAUMATIC, NORMOCEPHALIC - Eye Exam Eye Exam: EOMI, PERRL Pupil Exam: NORMAL ACCOMODATION, PERRL - ENT Exam ENT Exam: Mucous Membranes Moist, Normal External Ear Exam, TM's Normal Bilaterally - Neck Exam Neck exam: Positive for: Full Rom, Normal Inspection - Respiratory Exam Respiratory Exam: Clear to Auscultation Bilateral, NORMAL BREATHING PATTERN. absent: Rales, Rhonchi, Wheezes - Cardiovascular Exam Cardiovascular Exam: REGULAR RHYTHM, RRR, +S1, +S2 - GI/Abdominal Exam GI & Abdominal Exam: Normal Bowel Sounds, Soft. absent: Distended, Tenderness - Extremities Exam Extremities exam: Positive for: full ROM, normal inspection - Neurological Exam Neurological exam: Alert, CN II-XII Intact, Oriented x3 - Psychiatric Exam Psychiatric exam: Normal Affect, Normal Mood - Skin Skin Exam: Intact, Normal Color Results - Vital Signs Recent Vital Signs: Last Vital Signs Temp 98.6 F 05/03/17 14:22 Pulse 98 H 05/03/17 14:22 Resp 18 05/03/17 14:22 BP 158/85 H 05/03/17 14:22 Pulse Ox 96 05/03/17 06:00 - Labs Result Diagrams: 05/02/17 08:00 05/02/17 08:00 Labs: Laboratory Results - last 24 hr 05/02/17 05/02/17 05/02/17 08:00 10:58 16:21 POC Glucose (mg/dL) 153 H 147 H Hemoglobin A1c 7.9 H 05/02/17 05/03/17 05/03/17 21:47 08:44 11:33 POC Glucose (mg/dL) 172 H 109 141 H Hemoglobin A1c Assessment & Plan - Assessment and Plan (Free Text) Assessment: 72 yo with recent lumbar laminectomy presenting with lower back pain and fevers up to 101 F. Low grade fevers of 100.3 F here at this facility. The patient is awake and alert. No additional complaints. Currently on Rocephin for antibiotic treatment. [place] cultures taken. Cultures to date have been negative. Supportive care. CT Chest suggesting faint multifocal segmental infiltrates. Would obtain procalcitonin in this case to aid in evaluation of pneumonia. Obtain ESR as well. Will continue on Rocephin alone at this time. Thank you for allowing me to participate in the care of the patient, we will follow with you.
--- NOTE | 2017-05-03 20:21 | PN ---
DATE: 05/03/2017 PULMONARY PROGRESS NOTE REFERRING PHYSICIAN: Dr. Espino SUBJECTIVE: He is lying in the bed, mild cough, no nausea, no vomiting, no diarrhea, low back pain. No leg pain or leg swelling. PHYSICAL EXAMINATION GENERAL: In no acute distress. VITAL SIGNS: Temp is 98, heart rate is 98, respiratory rate is 18, blood pressure is 158/85, pulse ox is 96% on room air. HEENT: Moist mucous membranes. Crowded airway. NECK: Supple. No JVD. LUNGS: Has few scattered rhonchi. HEART: S1 and S2. ABDOMEN: Soft and nontender. No organomegaly. EXTREMITIES: There is no edema. NEUROLOGIC: Awake and alert, follow simple commands. MEDICATIONS: He is on Cozaar 100 mg daily, Dilaudid 0.5 mg q. 4 hours p.r.n. Dulcolax 10 mg daily, DuoNeb q 6 hours, Duragesic patch q 72 hours, Flomax 0.4 mg daily, Flonase 1 spray each nostril, metformin 500 mg twice a day, insulin coverage, Imdur 60 mg daily, Januvia 50 mg twice a day, lidocaine patch to affected area, Lipitor 20 mg daily, metoprolol tartrate 25 mg twice a day, gabapentin 600 mg q. 8 hours, Protonix 40 mg daily, Rocephin 1 g IV daily, Senokot p.r.n., Tylenol p.r.n, tramadol 50 mg q 8 hours, Zanaflex 4 mg q. 8 hours, Ultram 50 mg q. 8 hours. LABORATORY DATA: Shows blood sugar is 141. Blood cultures, urine culture; there is no growth. CAT scan of the chest, bilateral multi lobe infiltrate. CT of the lumbar spine shows there is severe dyskinesia in L3-L4 and L4-L5, laminectomy from L3 through L5 noted, no obvious fluid collection to suggest abscess. IMPRESSION AND PLAN: 1. Sepsis, health care associated fever, may have pneumonia. 2. Lumbar radiculopathy and spinal stenosis. 3. Cardiac arrhythmia requiring pacemaker. 4. Sinusitis. 5. Diabetes. 6. Hypertension. 7. Anemia. From pulmonary point of view, doing okay. Continue antibiotics. Keep head of bed at 45 degrees. We will do swallow study to rule our oropharyngeal dysphagia. Out of bed to chair. Physical therapy. Pain management. Fall precautions. Thank you and we will follow with you. Hali Aguilera MD
--- NOTE | 2017-05-03 20:44 | PCM.FALL ---
Post Fall Progress Note - Post Fall Fall Date: 05/03/17 Fall Time: 18:40 Description of Fall: Patient felt dizzy and fell backwards onto his bottom. - Post Fall Exam Vital Sign: Temp Pulse Resp BP Pulse Ox 98.6 F 74 18 103/54 L 96 05/03/17 14:22 05/03/17 18:03 05/03/17 14:22 05/03/17 18:03 05/03/17 06:00 Skull Exam: Negative for: Scalp wound, Scalp hematoma, Scalp depression, Ridge in skull Eye Exam: Positive for: Pupils equal, Pupils reactive Ear Exam: Negative for: Discharge, Bleeding Nose Exam: Negative for: Discharge, Bleeding Skin Exam: Negative for: Colour, Lacerations, Grazes, Bruising Mouth Exam: Negative for: Tongue bitten, Teeth dislodge Neck Exam: Negative for: Tenderness, Tingling, Weakness Spinal Exam: Negative for: Tenderness, Tingling, Weakness Chest Exam: Negative for: Difficulty breathing, Tenderness in collar bones, Tenderness in ribs Abdomen Exam: Negative for: Tenderness Arm Exam: Negative for: Deformity, Alteration in range of movement Leg Exam: Negative for: Deformity, Alteration in range of movement Impression/Plan: Discussed with family at bedside, patient noted to have history of delirium with "strong" medications like opiates. Family also states that patient was in rehab and his pain was controlled with tylenol only, no opiates. Family also notes that he has LE weakness since surgery and does not ambulate well. Patient per nurse received dilaudid at 1000 and ultram at about 1430. Patient only AAOx1 but able to recollect all events leading up to fall and notes he was dizzy and knows he is somewhat weak in the legs. Discussed all the above findings and events with Dr. Espino, opiates and gabapentin placed on hold.
[2017-05-04] MEDS ORDERED: HYDROmorphone 0.5 mg/0.5 ml ISec IVP STA (02:27)
[2017-05-04] MEDS: Pantoprazole 40 mg EC Tab PO SCH (05:42)
[2017-05-04] MEDS: Albuterol-Ipratrop 3 mg / 0.5 (3 ml) UD IH SCH ×2 (07:50→19:57)
[2017-05-04] MEDS: Insulin Reg-LOW-Coverage SC SCH ×4 (08:33→22:00)
[2017-05-04] MEDS: Lidocaine 5% Patch TD SCH (09:33)
[2017-05-04] MEDS: cefTRIAXone 1 gm 1 GM/100 ML BAG IVPB SCH (09:34)
[2017-05-04] MEDS: Bisacodyl 5mg EC Tab PO SCH (09:34)
[2017-05-04] MEDS: Fluticasone Nasal 50 mcg/Spray NS SCH (09:35)
--- NOTE | 2017-05-04 16:48 | CP.PCM.PN ---
Subjective - Date & Time of Evaluation Date of Evaluation: 05/04/17 Time of Evaluation: 14:30 - Subjective Subjective: Infectious Disease Follow Up: May 04, 2017 72 yo male with presentation of a fever up to 101 F. The patient was in [facility] for care after a recent laminectomy. His medical history includes anemia , hypertension, diabetes mellitus, sinusitis, pacemaker placement, recent lumbar laminectomy on 03/22/2017. The patient has pain still in the surgical site on the back. Cultures taken... blood cultures negative at 24 hours and urine culture with no growth. The patient temperature was no higher than 100.3 F so far in this hospitalization. Chest CT showing Faint multifocal segmental infiltrates. Supportive care. Currently on Ceftriaxone for antibiotic treatment at this time. No leukocytosis. Some renal insufficiency. Patient with fall last night. Apparently patient was trying to stand and fell backwards onto his buttock around 6:40 PM. Cultures to date have remained negative. Procalcitonin was within normal limits. Objective - Vital Signs/Intake and Output Vital Signs (last 24 hours): Temp Pulse Resp BP Pulse Ox 97.9 F 94 H 18 150/76 95 05/04/17 06:00 05/04/17 09:34 05/04/17 06:00 05/04/17 09:34 05/04/17 06:00 - Medications Medications: Current Medications Acetaminophen (Tylenol 325mg Tab) 650 mg PO Q4H PRN PRN Reason: pain fever Last Admin: 05/04/17 09:40 Dose: 650 mg Albuterol/Ipratropium (Duoneb 3 Mg/0.5 Mg (3 Ml) Ud) 3 ml IH [id number] [facility] Last Admin: 05/04/17 07:50 Dose: 3 ml Atorvastatin Calcium (Lipitor) 20 mg PO DIN [facility] Last Admin: 05/03/17 18:03 Dose: 20 mg Bisacodyl (Dulcolax) 10 mg PO DAILY [facility] Last Admin: 05/04/17 09:34 Dose: 10 mg Fentanyl (Duragesic) 1 patch TD Q72H [facility] Last Admin: 05/02/17 19:12 Dose: 1 patch Fluticasone Propionate (Flonase) 1 actuation NS DAILY [facility] Last Admin: 05/04/17 09:35 Dose: 2 spr Gabapentin (Neurontin) 600 mg PO Q8 [facility] PRN Reason: Protocol Last Admin: 05/03/17 15:32 Dose: 600 mg Ceftriaxone Sodium (Rocephin 1 Gram Ivpb) 1 gm in 100 mls @ 100 mls/hr IVPB DAILY [facility] PRN Reason: Protocol Last Admin: 05/04/17 09:34 Dose: 100 mls/hr Insulin Human Regular (Humulin R Low) 0 units SC ACHS [facility] PRN Reason: Protocol Last Admin: 05/04/17 12:42 Dose: 1 units Isosorbide Mononitrate (Imdur) 60 mg PO DAILY [facility] Last Admin: 05/04/17 09:34 Dose: 60 mg Lidocaine (Lidoderm) 1 ea TD DAILY [facility] Last Admin: 05/04/17 09:33 Dose: 1 ea Losartan Potassium (Cozaar) 100 mg PO DAILY [facility] Last Admin: 05/04/17 09:33 Dose: 100 mg Metformin HCl (Glucophage) 500 mg PO BID [facility] Last Admin: 05/04/17 09:34 Dose: 500 mg Metoprolol Tartrate (Lopressor) 25 mg PO BID [facility] Last Admin: 05/04/17 09:34 Dose: 25 mg Pantoprazole Sodium (Protonix Ec Tab) 40 mg PO 0600 [facility] Last Admin: 05/04/17 05:42 Dose: 40 mg Sennosides (Senokot Tab) 17.2 mg PO HS [facility] Last Admin: 05/03/17 21:42 Dose: 17.2 mg Sitagliptin Phosphate (Januvia) 50 mg PO BID [facility] Last Admin: 05/04/17 09:34 Dose: 50 mg Tamsulosin HCl (Flomax) 0.4 mg PO DAILY [facility] Last Admin: 05/04/17 09:34 Dose: 0.4 mg Tizanidine HCl (Zanaflex) 4 mg PO Q8 [facility] Last Admin: 05/03/17 15:32 Dose: 4 mg Tramadol HCl (Ultram) 50 mg PO Q8 [facility] Last Admin: 05/03/17 15:33 Dose: 50 mg - Labs Labs: 05/02/17 08:00 05/02/17 08:00 PT 12.7 SECONDS (9.4-12.5) H 05/01/17 17:40 INR 1.11 (0.93-1.08) H 05/01/17 17:40 APTT 28.3 Seconds (25.1-36.5) 05/01/17 17:40 - Constitutional Appears: Non-toxic, No Acute Distress, Chronically Ill - Head Exam Head Exam: ATRAUMATIC, NORMOCEPHALIC - Eye Exam Eye Exam: EOMI, PERRL Pupil Exam: NORMAL ACCOMODATION, PERRL - ENT Exam ENT Exam: Mucous Membranes Moist, Normal External Ear Exam, TM's Normal Bilaterally - Neck Exam Neck Exam: Full ROM, Normal Inspection - Respiratory Exam Respiratory Exam: Clear to Ausculation Bilateral, NORMAL BREATHING PATTERN. absent: Rales, Rhonchi, Wheezes - Cardiovascular Exam Cardiovascular Exam: REGULAR RHYTHM, RRR, +S1, +S2 - GI/Abdominal Exam GI & Abdominal Exam: Soft, Normal Bowel Sounds. absent: Distended, Tenderness - Extremities Exam Extremities Exam: Full ROM, Normal Inspection - Neurological Exam Neurological Exam: Alert, Awake, CN II-XII Intact, Oriented x3 - Psychiatric Exam Psychiatric exam: Normal Affect, Normal Mood - Skin Skin Exam: Intact, Normal Color Assessment and Plan - Assessment and Plan (Free Text) Assessment: 72 yo with recent lumbar laminectomy presenting with lower back pain and fevers up to 101 F. Low grade fevers of 100.3 F here at this facility. The patient is awake and alert. No additional complaints. Currently on Rocephin for antibiotic treatment. [place] cultures taken. Cultures to date have been negative. Supportive care. CT Chest suggesting faint multifocal segmental infiltrates. Would obtain procalcitonin in this case to aid in evaluation of pneumonia. Obtain ESR as well. Cultures negative to date. Procalcitonin within normal limits. Would repeat chest X-ray is a few days. Afebrile now. Will continue on Rocephin alone at this time. Thank you for allowing me to participate in the care of the patient, we will follow with you.
--- NOTE | 2017-05-05 00:28 | PN ---
DATE: SUBJECTIVE: The patient is a 72-year-old male. The patient was seen and examined on the bedside. He is alert, awake, but confused. Son was sitting on the bedside also. Length of time discussion done, all questions answered and son did translation for me also. The patient is still having back pain. No nausea, vomiting or diarrhea. No fever. No chills. No headache. No dizziness. PHYSICAL EXAMINATION VITAL SIGNS: Temperature 98.5, pulse 101, blood pressure 156/88 and respiratory rate 20. HEENT: Head is normocephalic and atraumatic. Eyes; PERRLA. Extraocular muscles are intact. Conjunctivae clear. Nose patent. Mucous membranes moist. NECK: Supple. No carotid bruit. No JVD or thyromegaly. CHEST: Bilaterally symmetrical. HEART: S1 and S2 positive. LUNGS: Clear to auscultation. ABDOMEN: Soft. Bowel sounds present. No organomegaly. EXTREMITIES: No edema. No cyanosis. NEUROLOGICAL: The patient is awake and alert. Moving all four extremities. No focal deficits, but is confused. MEDICATIONS: Cozaar, Dulcolax, Duragesic patch is on hold, Flomax, Flonase, metformin, insulin, Januvia, Lidoderm patch, Lipitor, Lopressor and Neurontin. LABORATORY DATA: White blood cell 7.0, hemoglobin 9.2, hematocrit 28.3 and platelets 258. Glucose 149. ASSESSMENT AND PLAN: Mr. Jacob Meyer is a 72-year-old male with anemia, hypoglycemia, uncontrolled diabetes mellitus, hemoglobin A1c is 7.9, iron deficiency, status post lumbar laminectomy, has lower back pain, came with fever of 101. Getting Rocephin, majano cultures taken. CT chest suggestive of faint multifocal segmental infiltrate. Infectious Disease is on the case. Continue antibiotics as per Infectious Disease. Seen by Dr. Aguilera, [employer]. Length of discussion done with him. History of hypertension, sinusitis, cardiac arrhythmia, requiring pacemaker, sepsis with healthcare associated fever, may be pneumonia. Dr. Aguilera want to do this evaluation to rule out oropharyngeal dysphagia. Physical Therapy, out of bed. CAT scan of the head done because of altered mental status and the patient has a history of fall, faint multifocal subsegmental infiltrate likely infectious inflammatory process. Lumbar spine CT done. Call Neurology consult. We will do CAT scan of the head. Severe disk degeneration L3-L4, L4-L5 disease, laminectomy from L3 through L5, no obvious fluid collection in the suggested abscess. Continue present treatment. Fall precaution. We will followup. Sandra Espino MD
[2017-05-05] MEDS: Albuterol-Ipratrop 3 mg / 0.5 (3 ml) UD IH SCH ×4 (01:40→20:40)
--- NOTE | 2017-05-05 03:49 | PN ---
DATE: 05/04/2017 REFERRING PHYSICIAN: Sandra Espino MD SUBJECTIVE: He is lying in the bed, awake, alert, follows simple commands. According to son, he is confused. No nausea, no vomiting, no diarrhea. No more low back pain. No leg pain or leg swelling. PHYSICAL EXAMINATION: GENERAL: In no acute distress. VITAL SIGNS: Temperature is 98, heart rate is 81, respiratory rate is 20, blood pressure 156/88, and pulse ox 95% on room air. HEENT: Moist mucous membranes. Crowded airway. NECK: Supple. No JVD. LUNGS: Fair airflow, no rhonchi. HEART: S1 and S2. ABDOMEN: Soft and nontender. No organomegaly. EXTREMITIES: No edema. NEUROLOGIC: Awake, alert, and follows simple commands but is confused. MEDICATIONS: He is on Cozaar 100 mg daily, Dulcolax 10 mg daily, DuoNeb q.6 hours, Duragesic patch q.72 hours which is on hold, Flomax 0.4 mg daily, Flonase one spray each nostril daily, metformin 500 mg twice a day, insulin coverage, Imdur 60 mg daily, Januvia 50 mg twice a day, lidocaine patch daily, Lipitor 20 mg daily, metoprolol tartrate 25 mg twice a day, gabapentin 600 mg q.8 hours which is on hold, Protonix 40 mg daily, Rocephin 1 gm IV daily, Senokot p.r.n. basis, Tylenol p.r.n. , Ultram 50 mg q.8 hours which is on hold, Zanaflex 4 mg q.8 hours which is on hold. LABORATORY DATA: Reviewed. Blood sugar is 149. Microbiology: Blood culture and urine culture, there is no growth. IMPRESSION AND PLAN: 1. Pulmonary infiltrates with sepsis and fever. 2. Lumbar radiculopathy with spinal stenosis. 3. Cardiac arrhythmia requiring pacemaker. 4. History of sinusitis. 5. Diabetes. 6. Hypertension. 7. Anemia. Case discussed with Dr. Espino in detail. Also spoke to the patient's son at bedside. I agree holding off all the sedatives and opioids. Neurology evaluation. CT of the head had been unremarkable. From pulmonary point of view, he is very comfortable. Keep head at 45 degrees. Sleep apnea precaution. Careful with sedation. Fall precautions. He is under one-to-one supervision. Followup labs in the morning. Thank you and we will follow with you. Hali Aguilera MD
[2017-05-05] MEDS: Pantoprazole 40 mg EC Tab PO SCH (05:38)
[2017-05-05 07:17] LABS: HEMOGLOBIN 9.9 g/dL (14.0-18.0); MEAN CELL VOLUME 77.3 fl (80.0-105.0); MEAN CORPUSCULAR HEMOGLOBIN 25.3 pg (25.0-35.0); MEAN CORPUSCULAR HGB CONC 32.7 g/dl (31.0-37.0); MEAN PLATELET VOLUME 9.8 fl (7.0-11.0); RBC 3.92 10^6/uL (3.5-6.1); RED CELL DISTRIBUTION WIDTH 14.6 % (11.5-14.5); WHITE BLOOD COUNT 6.8 10^3/ul (4.5-11.0)
[2017-05-05 07:59] LABS: ALBUMIN 3.9 g/dL (3.0-4.8); ALT/SGPT 30 U/L (7-56); AST/SGOT 29 U/L (17-59); BLOOD UREA NITROGEN 15 mg/dL (7-21); CALCIUM 9.5 mg/dL (8.4-10.5); GFR AFRICAN-AMERICAN > 60; GFR NON-AFRICAN AMERICAN > 60
[2017-05-05] MEDS: Insulin Reg-LOW-Coverage SC SCH ×4 (08:03→22:00)
--- NOTE | 2017-05-05 08:50 | CT ---
PROCEDURE: CT HEAD WITHOUT CONTRAST. HISTORY: Altered mental status. COMPARISON: None available. TECHNIQUE: Axial computed tomography images were obtained through the head/brain without intravenous contrast. Coronal and sagittal reconstructed images. Radiation dose: Total exam DLP = 912.11 mGy-cm. This CT exam was performed using one or more of the following dose reduction techniques: Automated exposure control, adjustment of the mA and/or kV according to patient size, and/or use of iterative reconstruction technique. FINDINGS: HEMORRHAGE: No intracranial hemorrhage. BRAIN: No mass effect or edema. Cortical atrophy, periventricular small vessel disease. Small lacune are infarcts identified. Similar less pronounced findings identified in the internal capsule, centrum regions. 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 No hydrocephalus. CALVARIUM: Unremarkable. PARANASAL SINUSES: Mild pansinusitis left frontal left ethmoid and left maxillary sinuses. MASTOID AIR CELLS: Unremarkable as visualized. No inflammatory changes. OTHER FINDINGS: None. IMPRESSION: No acute intracranial abnormalities. No significant findings to account for the clinical presentation.
[2017-05-05] MEDS: Lidocaine 5% Patch TD SCH (10:13)
[2017-05-05] MEDS: Fluticasone Nasal 50 mcg/Spray NS SCH (10:16)
[2017-05-05] MEDS: Bisacodyl 5mg EC Tab PO SCH (10:17)
[2017-05-05] MEDS: cefTRIAXone 1 gm 1 GM/100 ML BAG IVPB SCH (10:18)
--- NOTE | 2017-05-05 15:07 | CP.PCM.PN ---
Subjective - Date & Time of Evaluation Date of Evaluation: 05/05/17 Time of Evaluation: 13:45 - Subjective Subjective: Infectious Disease Follow Up: May 05, 2017 72 yo male with presentation of a fever up to 101 F. The patient was in [facility] for care after a recent laminectomy. His medical history includes anemia , hypertension, diabetes mellitus, sinusitis, pacemaker placement, recent lumbar laminectomy on 03/22/2017. The patient has pain still in the surgical site on the back. Cultures taken... blood cultures negative at 24 hours and urine culture with no growth. The patient temperature was no higher than 100.3 F so far in this hospitalization. Chest CT showing Faint multifocal segmental infiltrates. Supportive care. Currently on Ceftriaxone for antibiotic treatment at this time. No leukocytosis. Some renal insufficiency. Patient with fall two nights ago. Apparently patient was trying to stand and fell backwards onto his buttock around 6:40 PM. Cultures to date have remained negative. Procalcitonin was within normal limits. Periods of confusion last night and combative behavior. Objective - Vital Signs/Intake and Output Vital Signs (last 24 hours): Temp Pulse Resp BP Pulse Ox 98.9 F 115 H 20 146/76 95 05/05/17 12:00 05/05/17 12:00 05/05/17 12:00 05/05/17 12:00 05/05/17 06:00 Intake and Output: 05/05/17 05/05/17 06:59 18:59 Intake Total 80 Output Total 200 Balance -120 - Medications Medications: Current Medications Acetaminophen (Tylenol 325mg Tab) 650 mg PO Q4H PRN PRN Reason: pain fever Last Admin: 05/05/17 03:20 Dose: 650 mg Albuterol/Ipratropium (Duoneb 3 Mg/0.5 Mg (3 Ml) Ud) 3 ml IH [id number] [facility] Last Admin: 05/05/17 14:18 Dose: 3 ml Atorvastatin Calcium (Lipitor) 20 mg PO DIN [facility] Last Admin: 05/04/17 18:28 Dose: 20 mg Bisacodyl (Dulcolax) 10 mg PO DAILY [facility] Last Admin: 05/05/17 10:17 Dose: 10 mg Fluticasone Propionate (Flonase) 1 actuation NS DAILY [facility] Last Admin: 05/05/17 10:16 Dose: 1 spr Gabapentin (Neurontin) 600 mg PO Q8 [facility] PRN Reason: Protocol Last Admin: 05/03/17 15:32 Dose: 600 mg Ceftriaxone Sodium (Rocephin 1 Gram Ivpb) 1 gm in 100 mls @ 100 mls/hr IVPB DAILY [facility] PRN Reason: Protocol Last Admin: 05/05/17 10:18 Dose: 100 mls/hr Insulin Human Regular (Humulin R Low) 0 units SC ACHS [facility] PRN Reason: Protocol Last Admin: 05/05/17 12:06 Dose: Not Given Isosorbide Mononitrate (Imdur) 60 mg PO DAILY [facility] Last Admin: 05/05/17 10:17 Dose: 60 mg Lidocaine (Lidoderm) 1 ea TD DAILY [facility] Last Admin: 05/05/17 10:13 Dose: 1 ea Losartan Potassium (Cozaar) 100 mg PO DAILY [facility] Last Admin: 05/05/17 10:17 Dose: 100 mg Metformin HCl (Glucophage) 500 mg PO BID [facility] Last Admin: 05/05/17 10:22 Dose: Not Given Metoprolol Tartrate (Lopressor) 25 mg PO BID [facility] Last Admin: 05/05/17 10:17 Dose: 25 mg Pantoprazole Sodium (Protonix Ec Tab) 40 mg PO 0600 [facility] Last Admin: 05/05/17 05:38 Dose: 40 mg Sennosides (Senokot Tab) 17.2 mg PO HS [facility] Last Admin: 05/04/17 21:21 Dose: 17.2 mg Sitagliptin Phosphate (Januvia) 50 mg PO BID [facility] Last Admin: 05/05/17 10:20 Dose: Not Given Tamsulosin HCl (Flomax) 0.4 mg PO DAILY [facility] Last Admin: 05/05/17 10:17 Dose: 0.4 mg Tizanidine HCl (Zanaflex) 4 mg PO Q8 [facility] Last Admin: 05/03/17 15:32 Dose: 4 mg Tramadol HCl (Ultram) 50 mg PO Q8 [facility] Last Admin: 05/03/17 15:33 Dose: 50 mg - Labs Labs: 05/05/17 06:30 05/05/17 06:30 PT 12.7 SECONDS (9.4-12.5) H 05/01/17 17:40 INR 1.11 (0.93-1.08) H 05/01/17 17:40 APTT 28.3 Seconds (25.1-36.5) 05/01/17 17:40 - Constitutional Appears: Non-toxic, No Acute Distress, Chronically Ill - Head Exam Head Exam: ATRAUMATIC, NORMOCEPHALIC - Eye Exam Eye Exam: EOMI, PERRL Pupil Exam: NORMAL ACCOMODATION, PERRL - ENT Exam ENT Exam: Mucous Membranes Moist, Normal External Ear Exam, TM's Normal Bilaterally - Neck Exam Neck Exam: Full ROM, Normal Inspection - Respiratory Exam Respiratory Exam: Clear to Ausculation Bilateral, NORMAL BREATHING PATTERN. absent: Rales, Rhonchi, Wheezes - Cardiovascular Exam Cardiovascular Exam: REGULAR RHYTHM, RRR, +S1, +S2 - GI/Abdominal Exam GI & Abdominal Exam: Soft, Normal Bowel Sounds. absent: Distended, Tenderness - Extremities Exam Extremities Exam: Full ROM, Normal Inspection - Neurological Exam Neurological Exam: Alert, Awake, CN II-XII Intact, Oriented x3 - Psychiatric Exam Psychiatric exam: Normal Affect, Normal Mood - Skin Skin Exam: Intact, Normal Color Assessment and Plan - Assessment and Plan (Free Text) Assessment: 72 yo with recent lumbar laminectomy presenting with lower back pain and fevers up to 101 F. Low grade fevers of 100.3 F here at this facility. The patient is awake and alert. No additional complaints. Currently on Rocephin for antibiotic treatment. [place] cultures taken. Cultures to date have been negative. Supportive care. CT Chest suggesting faint multifocal segmental infiltrates. Would obtain procalcitonin in this case to aid in evaluation of pneumonia. Obtain ESR as well. Cultures negative to date. Procalcitonin within normal limits. Would repeat chest X-ray in AM. Afebrile now. Will continue on Rocephin alone at this time. Afebrile since. Thank you for allowing me to participate in the care of the patient, we will follow with you.
--- NOTE | 2017-05-05 17:47 | CP.PCM.PN ---
<Marianna Duarte - Last Filed: 05/06/17 00:08> Subjective - Date & Time of Evaluation Date of Evaluation: 05/05/17 Time of Evaluation: 11:40 - Subjective Subjective: 72 yr male w/ history of Anemia, iron deficiency, HTN, DM, Spinal stenosis, BPH, Cholelithiasis w/ obstruction, GERD, Sick sinus syndrome and pacemaker. Previously resident of [facility] w/ history of Laminectomy L3-S1 03/22/2017. Confusion continues and 1:1 sitter at bedside. Patient denies of any chills, shortness of breath, cough, nausea, vomiting, diarrhea, abdominal pain, constipation, congestions, sore throat, chest pain, dysuria, rash, or any other complaints at this time. Objective - Vital Signs/Intake and Output Vital Signs (last 24 hours): Temp Pulse Resp BP Pulse Ox 98.9 F 97 H 20 120/62 95 05/05/17 12:00 05/05/17 17:11 05/05/17 12:00 05/05/17 17:11 05/05/17 09:00 Intake and Output: 05/05/17 05/05/17 06:59 18:59 Intake Total 80 Output Total 200 Balance -120 - Medications Medications: Current Medications Acetaminophen (Tylenol 325mg Tab) 650 mg PO Q4H PRN PRN Reason: pain fever Last Admin: 05/05/17 17:11 Dose: 650 mg Albuterol/Ipratropium (Duoneb 3 Mg/0.5 Mg (3 Ml) Ud) 3 ml IH [id number] [facility] Last Admin: 05/05/17 14:18 Dose: 3 ml Atorvastatin Calcium (Lipitor) 20 mg PO DIN [facility] Last Admin: 05/05/17 17:11 Dose: 20 mg Bisacodyl (Dulcolax) 10 mg PO DAILY [facility] Last Admin: 05/05/17 10:17 Dose: 10 mg Fluticasone Propionate (Flonase) 1 actuation NS DAILY [facility] Last Admin: 05/05/17 10:16 Dose: 1 spr Gabapentin (Neurontin) 600 mg PO Q8 [facility] PRN Reason: Protocol Last Admin: 05/03/17 15:32 Dose: 600 mg Ceftriaxone Sodium (Rocephin 1 Gram Ivpb) 1 gm in 100 mls @ 100 mls/hr IVPB DAILY [facility] PRN Reason: Protocol Last Admin: 05/05/17 10:18 Dose: 100 mls/hr Insulin Human Regular (Humulin R Low) 0 units SC ACHS [facility] PRN Reason: Protocol Last Admin: 05/05/17 17:16 Dose: Not Given Isosorbide Mononitrate (Imdur) 60 mg PO DAILY [facility] Last Admin: 05/05/17 10:17 Dose: 60 mg Lidocaine (Lidoderm) 1 ea TD DAILY [facility] Last Admin: 05/05/17 10:13 Dose: 1 ea Losartan Potassium (Cozaar) 100 mg PO DAILY [facility] Last Admin: 05/05/17 10:17 Dose: 100 mg Metformin HCl (Glucophage) 500 mg PO BID [facility] Last Admin: 05/05/17 17:15 Dose: Not Given Metoprolol Tartrate (Lopressor) 25 mg PO BID [facility] Last Admin: 05/05/17 17:11 Dose: 25 mg Pantoprazole Sodium (Protonix Ec Tab) 40 mg PO 0600 [facility] Last Admin: 05/05/17 05:38 Dose: 40 mg Sennosides (Senokot Tab) 17.2 mg PO HS [facility] Last Admin: 05/04/17 21:21 Dose: 17.2 mg Sitagliptin Phosphate (Januvia) 50 mg PO BID [facility] Last Admin: 05/05/17 10:20 Dose: Not Given Tamsulosin HCl (Flomax) 0.4 mg PO DAILY [facility] Last Admin: 05/05/17 10:17 Dose: 0.4 mg Tizanidine HCl (Zanaflex) 4 mg PO Q8 [facility] Last Admin: 05/03/17 15:32 Dose: 4 mg Tramadol HCl (Ultram) 50 mg PO Q8 [facility] Last Admin: 05/03/17 15:33 Dose: 50 mg - Labs Labs: 05/05/17 06:30 05/05/17 06:30 PT 12.7 SECONDS (9.4-12.5) H 05/01/17 17:40 INR 1.11 (0.93-1.08) H 05/01/17 17:40 APTT 28.3 Seconds (25.1-36.5) 05/01/17 17:40 - Constitutional Appears: Chronically Ill - Head Exam Head Exam: ATRAUMATIC, NORMAL INSPECTION, NORMOCEPHALIC - Eye Exam Eye Exam: EOMI, Normal appearance, PERRL - ENT Exam ENT Exam: Mucous Membranes Dry - Neck Exam Neck Exam: Full ROM, Normal Inspection. absent: Lymphadenopathy - Respiratory Exam Respiratory Exam: Clear to Ausculation Bilateral, NORMAL BREATHING PATTERN - Cardiovascular Exam Cardiovascular Exam: REGULAR RHYTHM, +S1, +S2. absent: Murmur - GI/Abdominal Exam GI & Abdominal Exam: Soft, Normal Bowel Sounds. absent: Tenderness - Back Exam Back Exam: paraspinal tenderness, tenderness - Neurological Exam Neurological Exam: Alert, Awake - Psychiatric Exam Psychiatric exam: Normal Affect, Normal Mood - Skin Skin Exam: Dry, Intact, Normal Color, Warm Assessment and Plan (1) Fever Status: Acute (2) History of laminectomy Status: Acute (3) Back pain Status: Acute (4) Pneumonia Status: Acute (5) Hyperglycemia Status: Acute (6) Anemia Status: Acute - Assessment and Plan (Free Text) Plan: CXR for LLL pneumonia. 1:1 sitter at bedside. Pain management: NO OPIOIDS continue neurontin, lidocaine patch Labs reviewed Blood cultures: negative IV rocephin GI/VTE prophylaxis PT onboard. Consults ID - Dr. Orellana - repeat CXR, evaluation of pneumonia. low grade fevers resolved, Rocephin antibiotic. Pulmonary - Dr. Aguilera - inhaled bronchodilater, flonase, nasal saline Reviewed: CT head = No acute intracranial abnormalities. No signifcant findings to account for the clinical presentation. CT chest = faint multifocal subsegmental likely infectious/inflammatory CT lumbar spine = Severe disc degeneration L3-L4-L5, laminectomy from L3-L5, no obvious fluid collection to suggest abscess CXR = WNL ECG = ABNORMAL - sinus tachycardia, nonspecific ST abnormality, Q wave in III, avf <Sandra Espino - Last Filed: 05/07/17 18:49> Objective - Vital Signs/Intake and Output Vital Signs (last 24 hours): Temp Pulse Resp BP Pulse Ox 98.7 F 96 H 17 141/79 97 05/07/17 12:00 05/07/17 12:00 05/07/17 12:00 05/07/17 12:00 05/07/17 05:51 Intake and Output: 05/07/17 05/07/17 06:59 18:59 Output Total 300 125 Balance -300 -125 - Labs Labs: 05/06/17 06:30 05/06/17 06:30 PT 12.7 SECONDS (9.4-12.5) H 05/01/17 17:40 INR 1.11 (0.93-1.08) H 05/01/17 17:40 APTT 28.3 Seconds (25.1-36.5) 05/01/17 17:40 Assessment and Plan - Assessment and Plan (Free Text) Plan: 72 yr male w/ history of Anemia, iron deficiency, HTN, DM, Spinal stenosis, BPH, Cholelithiasis w/ obstruction, GERD, Sick sinus syndrome and pacemaker. Previously resident of [facility] w/ history of Laminectomy L3-S1 03/22/2017. Confusion continues and 1:1 sitter at bedside. Patient denies of any chills, shortness of breath, cough, nausea, vomiting, diarrhea, abdominal pain, constipation, congestions, sore throat, chest pain, dysuria, rash, or any other complaints at this time. pt is seen and examined at bed side , looking better ,mental level is better , cont anb , will f/u agreed all above
--- NOTE | 2017-05-05 18:37 | CON ---
DATE: 05/05/2017 CHIEF COMPLAINT: Altered mental status. 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 He has also CT's of the chest shows faint multifocal segmental infiltrates, he is on antibiotics. He was previously on some sedative medications and fentanyl, which have been discontinued. He is currently getting Ultram. Currently, he is following commands, moving all extremities. 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 A1c 7.9, it is elevated currently. He is doing much better than yesterday. PAST MEDICAL HISTORY: History of type 2 diabetes mellitus, hypertension, history of lumbosacral radiculopathy with status post laminectomy at L3-L5 and severe degenerative disk disease at L3-L4 and L4-L5. SOCIAL HISTORY: No illicit drug use, smoking, or EtOH abuse. ALLERGIES: NO KNOWN DRUG ALLERGIES. MEDICATIONS: Reviewed by nursing reconciliation sheet. REVIEW OF SYSTEMS: A 14-point review of systems is negative except as per the HPI. LABORATORY DATA: Sodium is 139, potassium 3.9, chloride 104, carbon dioxide 21, BUN of 15, creatinine 0.9, and random glucose of 115. ASSESSMENT: This is a 72-year-old man with past medical history of type 2 diabetes mellitus, hypertension, anemia, history of lumbosacral radiculopathy, status post laminectomy at L3-L5, severe degenerative disk disease at L3-L4 and L4-L5, who presented with some fevers, generalized weakness, and some back pain. CAT scan of lumbosacral spine did not show any abscesses, just some severe degenerative disease at L3-L4 and L4-L5 and evidence of laminectomy. CAT scan of the head showed no acute intracranial abnormalities, normal right frontal infarct and chronic ischemic changes. A1c is 7.9. He has multifocal infiltrates on his chest CAT scan. Overall, his altered mental status/delirium is secondary to sedatives and opioids superimposed on underlying toxic metabolic encephalopathy causing transient ischemic state. PLAN: At this time, I recommend: 1. Avoid any sedative medications, just continue with gabapentin 600 mg p.o. q.8 hours for neuropathic pain. 2. Lidoderm patch one daily to his lumbar area for back pain. 3. Monitor electrolytes currently. 4. Continue antibiotics and avoid any sedative medications. At this time, frequent orientation throughout the day and delirium precautions. We will recommend out of bed to chair and physical therapy. Once again, thank you for this consult. Warren Sanders MD
--- NOTE | 2017-05-06 01:04 | PN ---
DATE: 05/05/2017 PULMONARY PROGRESS NOTE REFERRING PHYSICIAN: Sandra Espino MD SUBJECTIVE: The patient is lying in the bed comfortably under one-to-one supervision. Much more awake and he will follow simple commands. No cough or sputum production. No back pain. No leg pain or leg swelling. OBJECTIVE: GENERAL: In no acute distress. VITAL SIGNS: Temperature is 98, heart rate is 97, respiratory rate is 20, blood pressure is 120/62, and pulse oximetry is 92% on room air. HEENT: Moist mucous membrane. Crowded airway. Mallampati score is 4. NECK: Supple. No JVD. LUNGS: Has fair airflow with rhonchi. HEART: S1 and S2. ABDOMEN: Soft. Nontender. No organomegaly. EXTREMITIES: No edema. NEUROLOGIC: Sleepy, arousable, and follow simple commands. MEDICATIONS: He is on Cozaar 100 mg daily, Dulcolax 10 mg at bedtime p.r.n., DuoNeb q. 6 hours., Flomax 0.4 mg daily, Flonase one spray each nostril daily, metformin 500 mg twice a day, insulin coverage, Imdur 60 mg daily, Januvia 50 mg twice a day, lidocaine patch daily, Lipitor 20 mg daily, metoprolol tartrate 25 mg twice a day, gabapentin 600 mg q. 8 hours., Protonix 40 mg daily, Rocephin 1 gram IV daily, Senokot at bedtime,Tylenol p.r.n., Ultram 50 mg q. 8 hours, and Zanaflex 4 mg q. 8 hours. LABORATORY DATA: Shows hemoglobin of 9.9, hematocrit of 30.3, WBC of 6.8, and platelets are 325. Sodium of 139, potassium of 3.9, chloride of 104, bicarbonate of 21, BUN of 15, and creatinine of 0.9. Glucose of 115, calcium of 9.5, AST of 29, ALT of 30, alkaline phosphatase is 114, and albumin is 3.9. Microbiology: Blood culture and urine culture, there is no growth. IMPRESSION AND PLAN: Pulmonary infiltrates with sepsis, lumbar radiculopathy with spinal stenosis, cardiac arrhythmia requiring pacemaker, history of sinusitis, diabetes, hypertension, and anemia. From pulmonary point of view, he is doing okay. Keep head at 45 degrees. Aspiration precaution. Continue antibiotics. Continue hold opioids and benzodiazepines. Fall precautions. Gastric and DVT prophylaxis. Follow up labs in the morning. Thank you and I will follow with you. Hali Aguilera MD
[2017-05-06] MEDS: Albuterol-Ipratrop 3 mg / 0.5 (3 ml) UD IH SCH ×4 (01:33→20:20)
[2017-05-06] MEDS: Pantoprazole 40 mg EC Tab PO SCH (06:31)
[2017-05-06 07:08] LABS: HEMOGLOBIN 9.4 g/dL (14.0-18.0); MEAN CELL VOLUME 77.4 fl (80.0-105.0); MEAN CORPUSCULAR HGB CONC 32.3 g/dl (31.0-37.0); MEAN PLATELET VOLUME 9.9 fl (7.0-11.0); RBC 3.76 10^6/uL (3.5-6.1); RED CELL DISTRIBUTION WIDTH 14.8 % (11.5-14.5); WHITE BLOOD COUNT 6.4 10^3/ul (4.5-11.0)
[2017-05-06 07:31] LABS: ALBUMIN 3.8 g/dL (3.0-4.8); ALT/SGPT 30 U/L (7-56); AST/SGOT 29 U/L (17-59); BLOOD UREA NITROGEN 19 mg/dL (7-21); CALCIUM 9.3 mg/dL (8.4-10.5); GFR AFRICAN-AMERICAN > 60; GFR NON-AFRICAN AMERICAN > 60
--- NOTE | 2017-05-06 09:20 | RAD ---
HISTORY: LLL pneumonia COMPARISON: 05/01/2017 FINDINGS: LUNGS: No active pulmonary disease. PLEURA: No significant pleural effusion identified, no pneumothorax apparent. CARDIOVASCULAR: Normal. OSSEOUS STRUCTURES: No significant abnormalities. VISUALIZED UPPER ABDOMEN: Normal. OTHER FINDINGS: None. IMPRESSION: No active disease.
[2017-05-06] MEDS: Fluticasone Nasal 50 mcg/Spray NS SCH (10:33)
[2017-05-06] MEDS: Lidocaine 5% Patch TD SCH (10:33)
[2017-05-06] MEDS: cefTRIAXone 1 gm 1 GM/100 ML BAG IVPB SCH (10:34)
[2017-05-06] MEDS: Bisacodyl 5mg EC Tab PO SCH (10:34)
[2017-05-06] MEDS: Insulin Reg-LOW-Coverage SC SCH ×4 (12:17→22:00)
--- NOTE | 2017-05-06 17:01 | CP.PCM.PN ---
Subjective - Date & Time of Evaluation Date of Evaluation: 05/06/17 Time of Evaluation: 12:00 - Subjective Subjective: DATE: 05/06/2017 CHIEF COMPLAINT: Altered mental status. 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 A1c 7.9, it is elevated currently. He is doing much better than yesterday. PAST MEDICAL HISTORY: History of type 2 diabetes mellitus, hypertension, history of lumbosacral radiculopathy with status post laminectomy at L3-L5 and severe degenerative disk disease at L3-L4 and L4-L5. SOCIAL HISTORY: No illicit drug use, smoking, or EtOH abuse. ALLERGIES: NO KNOWN DRUG ALLERGIES. MEDICATIONS: Reviewed by nursing reconciliation sheet. REVIEW OF SYSTEMS: A 14-point review of systems is negative except as per the HPI. LABORATORY DATA: Sodium is 139, potassium 3.9, chloride 104, carbon dioxide 21, BUN of 15, creatinine 0.9, and random glucose of 115. ASSESSMENT: This is a 72-year-old man with past medical history of type 2 diabetes mellitus, hypertension, anemia, history of lumbosacral radiculopathy, status post laminectomy at L3-L5, severe degenerative disk disease at L3-L4 and L4-L5, who presented with some fevers, generalized weakness, and some back pain. CAT scan of lumbosacral spine did not show any abscesses, just some severe degenerative disease at L3-L4 and L4-L5 and evidence of laminectomy. CAT scan of the head showed no acute intracranial abnormalities, normal right frontal infarct and chronic ischemic changes. A1c is 7.9. He has multifocal infiltrates on his chest CAT scan. Overall, his altered mental status/delirium is secondary to sedatives and opioids superimposed on underlying toxic metabolic encephalopathy causing transient ischemic state. PLAN: At this time, I recommend: 1. Avoid any sedative medications, just continue with gabapentin 600 mg p.o. q.8 hours for neuropathic pain. 2. Lidoderm patch one daily to his lumbar area for back pain. 3. Monitor electrolytes currently. 4. Continue antibiotics and avoid any sedative medications. At this time, frequent orientation throughout the day and delirium precautions. 5. We will recommend out of bed to chair and physical therapy. THANK YOU Warren Sanders MD Objective - Vital Signs/Intake and Output Vital Signs (last 24 hours): Temp Pulse Resp BP Pulse Ox 98.5 F 69 18 145/82 95 05/06/17 12:00 05/06/17 12:00 05/06/17 12:00 05/06/17 12:00 05/06/17 06:00 Intake and Output: 05/06/17 05/06/17 06:59 18:59 Intake Total 300 700 Output Total 200 Balance 300 500 - Medications Medications: Current Medications Acetaminophen (Tylenol 325mg Tab) 650 mg PO Q4H PRN PRN Reason: pain fever Last Admin: 05/06/17 03:01 Dose: 650 mg Albuterol/Ipratropium (Duoneb 3 Mg/0.5 Mg (3 Ml) Ud) 3 ml IH [id number] [facility] Last Admin: 05/06/17 13:19 Dose: Not Given Atorvastatin Calcium (Lipitor) 20 mg PO DIN [facility] Last Admin: 05/05/17 17:11 Dose: 20 mg Bisacodyl (Dulcolax) 10 mg PO DAILY [facility] Last Admin: 05/06/17 10:34 Dose: 10 mg Fluticasone Propionate (Flonase) 1 actuation NS DAILY [facility] Last Admin: 05/06/17 10:33 Dose: 1 spr Gabapentin (Neurontin) 600 mg PO Q8 [facility] PRN Reason: Protocol Last Admin: 05/03/17 15:32 Dose: 600 mg Ceftriaxone Sodium (Rocephin 1 Gram Ivpb) 1 gm in 100 mls @ 100 mls/hr IVPB DAILY [facility] PRN Reason: Protocol Last Admin: 05/06/17 10:34 Dose: 100 mls/hr Insulin Human Regular (Humulin R Low) 0 units SC ACHS [facility] PRN Reason: Protocol Last Admin: 05/06/17 13:24 Dose: 1 units Isosorbide Mononitrate (Imdur) 60 mg PO DAILY [facility] Last Admin: 05/06/17 10:34 Dose: 60 mg Lidocaine (Lidoderm) 1 ea TD DAILY [facility] Last Admin: 05/06/17 10:33 Dose: 1 ea Losartan Potassium (Cozaar) 100 mg PO DAILY [facility] Last Admin: 01/11/18 10:34 Dose: 100 mg Metformin HCl (Glucophage) 500 mg PO BID [facility] Last Admin: 05/06/17 10:34 Dose: 500 mg Metoprolol Tartrate (Lopressor) 25 mg PO BID [facility] Last Admin: 05/06/17 10:34 Dose: 25 mg Pantoprazole Sodium (Protonix Ec Tab) 40 mg PO 0600 [facility] Last Admin: 05/06/17 06:31 Dose: 40 mg Sennosides (Senokot Tab) 17.2 mg PO HS [facility] Last Admin: 05/05/17 22:13 Dose: 17.2 mg Sitagliptin Phosphate (Januvia) 50 mg PO BID [facility] Last Admin: 05/06/17 10:34 Dose: 50 mg Tamsulosin HCl (Flomax) 0.4 mg PO DAILY [facility] Last Admin: 05/06/17 10:35 Dose: 0.4 mg Tizanidine HCl (Zanaflex) 4 mg PO Q8 [facility] Last Admin: 05/03/17 15:32 Dose: 4 mg Tramadol HCl (Ultram) 50 mg PO Q8 [facility] Last Admin: 05/03/17 15:33 Dose: 50 mg - Labs Labs: 05/06/17 06:30 05/06/17 06:30 PT 12.7 SECONDS (9.4-12.5) H 05/01/17 17:40 INR 1.11 (0.93-1.08) H 05/01/17 17:40 APTT 28.3 Seconds (25.1-36.5) 05/01/17 17:40
--- NOTE | 2017-05-06 23:04 | CP.PCM.PN ---
Subjective - Date & Time of Evaluation Date of Evaluation: 05/06/17 Time of Evaluation: 20:00 - Subjective Subjective: Infectious Disease Follow Up: May 06, 2017 72 yo male with presentation of a fever up to 101 F. The patient was in [facility] for care after a recent laminectomy. His medical history includes anemia , hypertension, diabetes mellitus, sinusitis, pacemaker placement, recent lumbar laminectomy on 03/22/2017. The patient has pain still in the surgical site on the back. Cultures taken... blood cultures negative at 24 hours and urine culture with no growth. The patient temperature was no higher than 100.3 F so far in this hospitalization. Chest CT showing Faint multifocal segmental infiltrates. Supportive care. Currently on Ceftriaxone for antibiotic treatment at this time. No leukocytosis. Some renal insufficiency. Patient with fall three nights ago. Apparently patient was trying to stand and fell backwards onto his buttock around 6:40 PM. Cultures to date have remained negative. Procalcitonin was within normal limits. Periods of confusion the last few days and combative behavior. Seen by Neurology today. Objective - Vital Signs/Intake and Output Vital Signs (last 24 hours): Temp Pulse Resp BP Pulse Ox 98.4 F 69 19 145/82 96 05/06/17 18:00 05/06/17 18:24 05/06/17 18:00 05/06/17 18:24 05/06/17 18:00 Intake and Output: 05/06/17 05/07/17 18:59 06:59 Intake Total 700 Output Total 200 Balance 500 - Medications Medications: Current Medications Acetaminophen (Tylenol 325mg Tab) 650 mg PO Q4H PRN PRN Reason: pain fever Last Admin: 05/06/17 22:13 Dose: 650 mg Albuterol/Ipratropium (Duoneb 3 Mg/0.5 Mg (3 Ml) Ud) 3 ml IH [id number] [facility] Last Admin: 05/06/17 20:20 Dose: Not Given Atorvastatin Calcium (Lipitor) 20 mg PO DIN [facility] Last Admin: 05/06/17 18:25 Dose: 20 mg Bisacodyl (Dulcolax) 10 mg PO DAILY [facility] Last Admin: 05/06/17 10:34 Dose: 10 mg Fluticasone Propionate (Flonase) 1 actuation NS DAILY [facility] Last Admin: 05/06/17 10:33 Dose: 1 spr Gabapentin (Neurontin) 600 mg PO Q8 [facility] PRN Reason: Protocol Last Admin: 05/03/17 15:32 Dose: 600 mg Ceftriaxone Sodium (Rocephin 1 Gram Ivpb) 1 gm in 100 mls @ 100 mls/hr IVPB DAILY [facility] PRN Reason: Protocol Last Admin: 05/06/17 10:34 Dose: 100 mls/hr Insulin Human Regular (Humulin R Low) 0 units SC ACHS [facility] PRN Reason: Protocol Last Admin: 05/06/17 18:05 Dose: Not Given Isosorbide Mononitrate (Imdur) 60 mg PO DAILY [facility] Last Admin: 05/06/17 10:34 Dose: 60 mg Lidocaine (Lidoderm) 1 ea TD DAILY [facility] Last Admin: 05/06/17 10:33 Dose: 1 ea Losartan Potassium (Cozaar) 100 mg PO DAILY [facility] Last Admin: 05/06/17 10:34 Dose: 100 mg Metformin HCl (Glucophage) 500 mg PO BID [facility] Last Admin: 05/06/17 18:24 Dose: 500 mg Metoprolol Tartrate (Lopressor) 25 mg PO BID [facility] Last Admin: 05/06/17 18:24 Dose: 25 mg Pantoprazole Sodium (Protonix Ec Tab) 40 mg PO 0600 [facility] Last Admin: 05/06/17 06:31 Dose: 40 mg Sennosides (Senokot Tab) 17.2 mg PO HS [facility] Last Admin: 05/06/17 22:14 Dose: 17.2 mg Sitagliptin Phosphate (Januvia) 50 mg PO BID [facility] Last Admin: 05/06/17 18:24 Dose: 50 mg Tamsulosin HCl (Flomax) 0.4 mg PO DAILY [facility] Last Admin: 05/06/17 10:35 Dose: 0.4 mg Tizanidine HCl (Zanaflex) 4 mg PO Q8 [facility] Last Admin: 05/03/17 15:32 Dose: 4 mg Tramadol HCl (Ultram) 50 mg PO Q8 [facility] Last Admin: 05/03/17 15:33 Dose: 50 mg - Labs Labs: 05/06/17 06:30 05/06/17 06:30 PT 12.7 SECONDS (9.4-12.5) H 05/01/17 17:40 INR 1.11 (0.93-1.08) H 05/01/17 17:40 APTT 28.3 Seconds (25.1-36.5) 05/01/17 17:40 - Constitutional Appears: Non-toxic, No Acute Distress, Chronically Ill - Head Exam Head Exam: ATRAUMATIC, NORMOCEPHALIC - Eye Exam Eye Exam: EOMI, PERRL Pupil Exam: NORMAL ACCOMODATION, PERRL - ENT Exam ENT Exam: Mucous Membranes Moist, Normal External Ear Exam, TM's Normal Bilaterally - Neck Exam Neck Exam: Full ROM, Normal Inspection - Respiratory Exam Respiratory Exam: Clear to Ausculation Bilateral, NORMAL BREATHING PATTERN. absent: Rales, Rhonchi, Wheezes - Cardiovascular Exam Cardiovascular Exam: REGULAR RHYTHM, RRR, +S1, +S2 - GI/Abdominal Exam GI & Abdominal Exam: Soft, Normal Bowel Sounds. absent: Distended, Tenderness - Extremities Exam Extremities Exam: Full ROM, Normal Inspection - Neurological Exam Neurological Exam: Alert, Awake, CN II-XII Intact Additional comments: AAO x 2 - Psychiatric Exam Psychiatric exam: Normal Affect, Normal Mood - Skin Skin Exam: Intact, Normal Color Assessment and Plan - Assessment and Plan (Free Text) Assessment: 72 yo with recent lumbar laminectomy presenting with lower back pain and fevers up to 101 F. Low grade fevers of 100.3 F here at this facility. The patient is awake and alert. No additional complaints. Currently on Rocephin for antibiotic treatment. [place] cultures taken. Cultures to date have been negative. Supportive care. CT Chest suggesting faint multifocal segmental infiltrates. Would obtain procalcitonin in this case to aid in evaluation of pneumonia. Obtain ESR as well. Cultures negative to date. Procalcitonin within normal limits. Would repeat chest X-ray in AM. Afebrile now. Will continue on Rocephin alone at this time. Afebrile since. Looking for 7 days of treatment and to repeat Chest X-ray. Thank you for allowing me to participate in the care of the patient, we will follow with you.
[2017-05-07] MEDS: Albuterol-Ipratrop 3 mg / 0.5 (3 ml) UD IH SCH ×3 (01:43→13:27)
--- NOTE | 2017-05-07 02:07 | PN ---
DATE: 05/06/2017 PULMONARY PROGRESS NOTE REFERRING PHYSICIAN: Sandra Espino MD SUBJECTIVE: He is lying in the bed, sleepy, arousable. Denies any cough. No sputum production. No nausea. No vomiting. No diarrhea. No leg pain. No leg swelling. OBJECTIVE: GENERAL: In no acute distress. VITAL SIGNS: Temperature 98, heart rate 89, respiratory rate 18, blood pressure 140/71, and pulse oximetry 96% on room air. HEENT: Moist mucous membrane. Crowded airway. Mallampati score is 4. NECK: Supple. No JVD. LUNGS: Have a fair airflow with rhonchi. HEART: S1 and S2. ABDOMEN: Soft and nontender. No organomegaly. EXTREMITIES: No edema. NEUROLOGIC: Awake, alert, and follows simple commands. MEDICATIONS: He is on Cozaar 100 mg daily, Dulcolax 10 mg daily, DuoNeb q.6 hours, Flomax 0.4 mg daily, Flonase one spray to each nostril daily, metformin 500 mg twice a day, insulin coverage, Imdur 60 mg daily, Januvia 50 mg twice a day, lidocaine patch daily, Lipitor 20 mg daily, metoprolol tartrate 25 mg twice a day, gabapentin 600 mg q.8 hours, Protonix 40 mg daily, Rocephin 1 gm IV daily, Senokot p.r.n., Tylenol p.r.n., Ultram 50 mg q.8 hours, Zanaflex 4 mg q.8 hours, still Neurontin is on hold. LABORATORY DATA: Shows hemoglobin 9.4, hematocrit 29.1, WBC is 6.4, and platelets 325. Blood sugar 119, sodium is 139, potassium 3.6, chloride 107, bicarbonate is 22, BUN 19, creatinine 1.0, calcium is 9.3, AST 29, ALT 30, alkaline phosphatase is 104, and albumin is 3.8. Microbiology: Blood culture has been negative. Chest x-ray shows no infiltrate or effusion. IMPRESSION AND PLAN: Pulmonary infiltrate with sepsis; lumbar radiculopathy; spinal stenosis; cardiac arrhythmia, requiring pacemaker; sinusitis; diabetes; hypertension; and anemia. From pulmonary point of view, doing okay. Keep head at 45 degrees. Aspiration precaution. Bronchodilators. Gastric prophylaxis and deep venous thrombosis prophylaxis. Fall precaution. We will repeat chest x-ray to assure the stability of infiltrate. Thank you and we will follow with you. Hail Aguilera MD
--- NOTE | 2017-05-07 04:49 | PN ---
SUBJECTIVE: The patient is a 72-year-old male. The patient is seen and examined on the bedside, looking comfortable, still confused, is on one-to-one, I cannot see any improvement. He is not able to give review of system, but look like no fever, no chills, no headache, no dizziness. PHYSICAL EXAMINATION: VITAL SIGNS: Temperature 98.5, pulse 89, respiratory rate 18, blood pressure 145/85, pulse oximetry 95%. HEENT: Head, normocephalic and atraumatic. Eyes, PERRLA. Extraocular muscles are intact. Conjunctivae clear. Nose patent. Mucous membranes moist. NECK: Supple. No carotid bruit. No JVD or thyromegaly. CHEST: Bilaterally symmetrical. HEART: S1 and S2 positive. LUNGS: Clear to auscultation. ABDOMEN: Soft. Bowel sounds present. No organomegaly. EXTREMITIES: No edema. No cyanosis. NEUROLOGIC: The patient is awake and alert, but totally confused; even I talked to the patient with the nurse who speaks Bengali, but still the patient's conversation is irrelevant. MEDICATIONS: Tylenol, DuoNeb, Lipitor, Dulcolax, Flonase, Neurontin, Rocephin, insulin, Imdur, Lidoderm, Cozaar, Glucophage, Lopressor, Protonix, Senokot, Januvia, Flomax, Zanaflex, tramadol. LABORATORY DATA: White blood cell 6.4, hemoglobin 9.4, hematocrit 29.1, platelets 325. Sodium 139, potassium 3.6, BUN 19, creatinine 1.0, glucose 112. ASSESSMENT AND PLAN: Mr. Jacob Meyer is a 72-year-old male with anemia, uncontrolled diabetes mellitus, hypertension, history of lumbosacral radiculopathy with status post laminectomy at L3-L5 and severe degenerative disease at L3-L4 and L4-L5, history of anemia. The patient came with fever, generalized weakness. CAT scan of lumbosacral spine did not show any abscess, just some severe degenerative joint disease at L3-L4 and L4-L5. CAT scan of the head showed no acute intracranial abnormalities, normal right frontal infarct, and chronic ischemic changes. Hemoglobin A1c is 7.9, it means sugar is not controlled. Multifocal infiltrates on his chest CAT scan and according to neurologist, the patient's altered mental status/delirium is secondary to sedative and opioids, but the patient is not on any sedative or opioids now and may be superimposed on underlying toxic metabolic encephalopathy causing transient ischemic state. The patient has not got any sedative or opioids. Continue Lidoderm. Continue Neurontin. Discussion done with the nursing staff. Seen by Dr. Lucas Orellana also. Continue Rocephin for antibiotic treatment as per Infectious Disease. [place] cultures were taken. Cultures to date have been negative. Supportive care. Dr. Orellana ordered prolactin and ESR. Cultures are negative. Prolactin is within normal limits. We will repeat chest x-rays. Continue Rocephin alone. Now afebrile. Looking for seven-day treatment. I will repeat chest x-rays. Gastrointestinal and deep vein thrombosis prophylaxes. Repeat labs. We will follow up. Sandra Espino MD
[2017-05-07 05:51] VITALS: O2SAT 97
[2017-05-07] MEDS: Pantoprazole 40 mg EC Tab PO SCH (05:53)
[2017-05-07] MEDS: Insulin Reg-LOW-Coverage SC SCH ×2 (08:49→13:27)
[2017-05-07] MEDS: Fluticasone Nasal 50 mcg/Spray NS SCH (10:03)
[2017-05-07] MEDS: cefTRIAXone 1 gm 1 GM/100 ML BAG IVPB SCH (10:03)
[2017-05-07] MEDS: Lidocaine 5% Patch TD SCH (10:03)
[2017-05-07] MEDS: Bisacodyl 5mg EC Tab PO SCH (10:04)
[2017-05-07 14:06] VITALS: BP 141/79; PULSE 96; RESP 17; TEMP 98.7
--- NOTE | 2017-05-07 19:00 | CP.PCM.PN ---
Subjective - Date & Time of Evaluation Date of Evaluation: 05/07/17 Time of Evaluation: 12:00 - Subjective Subjective: Infectious Disease Follow Up: May 07, 2017 72 yo male with presentation of a fever up to 101 F. The patient was in [facility] for care after a recent laminectomy. His medical history includes anemia , hypertension, diabetes mellitus, sinusitis, pacemaker placement, recent lumbar laminectomy on 03/22/2017. The patient has pain still in the surgical site on the back. Cultures taken... blood cultures negative at 24 hours and urine culture with no growth. The patient temperature was no higher than 100.3 F so far in this hospitalization. Chest CT showing Faint multifocal segmental infiltrates. Supportive care. Currently on Ceftriaxone for antibiotic treatment at this time. No leukocytosis. Some renal insufficiency. Patient with fall three nights ago. Apparently patient was trying to stand and fell backwards onto his buttock around 6:40 PM. Cultures to date have remained negative. Procalcitonin was within normal limits. Periods of confusion the last few days and combative behavior. Objective - Vital Signs/Intake and Output Vital Signs (last 24 hours): Temp Pulse Resp BP Pulse Ox 98.7 F 96 H 17 141/79 97 05/07/17 12:00 05/07/17 12:00 05/07/17 12:00 05/07/17 12:00 05/07/17 05:51 Intake and Output: 05/07/17 05/07/17 06:59 18:59 Output Total 300 125 Balance -300 -125 - Labs Labs: 05/06/17 06:30 05/06/17 06:30 PT 12.7 SECONDS (9.4-12.5) H 05/01/17 17:40 INR 1.11 (0.93-1.08) H 05/01/17 17:40 APTT 28.3 Seconds (25.1-36.5) 05/01/17 17:40 - Constitutional Appears: Non-toxic, No Acute Distress, Chronically Ill - Head Exam Head Exam: ATRAUMATIC, NORMOCEPHALIC - Eye Exam Eye Exam: EOMI, PERRL Pupil Exam: NORMAL ACCOMODATION, PERRL - ENT Exam ENT Exam: Mucous Membranes Moist, Normal External Ear Exam, TM's Normal Bilaterally - Neck Exam Neck Exam: Full ROM, Normal Inspection - Respiratory Exam Respiratory Exam: Clear to Ausculation Bilateral, NORMAL BREATHING PATTERN. absent: Rales, Rhonchi, Wheezes - Cardiovascular Exam Cardiovascular Exam: REGULAR RHYTHM, RRR, +S1, +S2 - GI/Abdominal Exam GI & Abdominal Exam: Soft, Normal Bowel Sounds. absent: Distended, Tenderness - Extremities Exam Extremities Exam: Full ROM, Normal Inspection - Neurological Exam Neurological Exam: Alert, Awake, CN II-XII Intact Additional comments: AAO x 2 - Psychiatric Exam Psychiatric exam: Normal Affect, Normal Mood - Skin Skin Exam: Intact, Normal Color Assessment and Plan - Assessment and Plan (Free Text) Assessment: 72 yo with recent lumbar laminectomy presenting with lower back pain and fevers up to 101 F. Low grade fevers of 100.3 F here at this facility. The patient is awake and alert. No additional complaints. Currently on Rocephin for antibiotic treatment. [place] cultures taken. Cultures to date have been negative. Supportive care. CT Chest suggesting faint multifocal segmental infiltrates. Would obtain procalcitonin in this case to aid in evaluation of pneumonia. Obtain ESR as well. Cultures negative to date. Procalcitonin within normal limits. Afebrile now. Completing on Rocephin alone at this time. Afebrile since. Looking for 7 days of treatment and to repeat Chest X-ray. Repeat Chest X-ray clean. Thank you for allowing me to participate in the care of the patient, we will follow with you.
--- NOTE | 2017-05-07 23:04 | CON ---
DATE: HISTORY OF PRESENT ILLNESS: The patient is 72-year-old male with reported history of anemia, hypertension, diabetes, anxiety, status post pacemaker, status post laminectomy. The patient is was sent from [facility] for fever. Psych consult was called for evaluation of change in mental status. The patient was seen and examined. The patient is German speaking, this insurance underwriter sales utilized nurse for translation. The patient appears to be sleepy but easily arousable. The patient knows where he is and circumstances of his admission to this hospital. At times, the patient had difficulty to stay focused during the conversation, but the patient was very pleasant and cooperative. The patient does not present to be confused, but at times, thought process is off track The patient denied being depressed. Denied thoughts of harming himself or others. Denied hearing voices, denied seeing things. Denied paranoid ideation. The patient does not present to be psychotic or depressed or anxious, very comfortable. The patient denied history of mental illness. Denied history of suicidal attempts. Denied history of depression. PHYSICAL EXAMINATION: VITAL SIGNS: Stable at 98.7 temperature, pulse is 96, blood pressure 179, respirations 17. MEDICATIONS: Reviewed, Ultram, Flomax, Januvia, Senokot, Protonix, Lopressor, Glucophage, Cozaar, Lidoderm, Humulin, Neurontin, Flonase, Rocephin, Dulcolax, Lipitor and DuoNeb. LABORATORY DATA: Labs also reviewed. Most recent was from was from yesterday. Chemistry also reviewed. Urinalysis reviewed and serology reviewed. MENTAL STATUS: As described above. The patient is pleasant, cooperative. Fair eye contact. Speech was normal rate, tone, quality and quantity. Mood described as feel better. Affect was reactive, mood congruent. Thought process at times circumstantial. Thought content, the patient denied visual, auditory or tactile hallucinations. Denied paranoid ideation. The patient denied thoughts of harming himself or others. Denied intents or plan. Insight and judgment seems to be improving. Impulses are well controlled. As per nursing staff, the patient had a good night sleep and does not have any behavioral disturbances. IMPRESSION: Most likely, altered mental status, was related to delirium stage and fever, right now it is improving. The patient has multiple medical issues. Please see medical team notes for more detailed information plan. We try to agree with Neurology suggestions to avoid any sedation for this patient. The patient presented very well. Delirium is clearing. I have decided we will not implement any psychotropic medication as of now. The patient is calm, cooperative and socially appropriate and this insurance underwriter sales will sign off. If the patient required further psychiatric evaluation, call us back. Should you have any questions, give me a call back. Jessica Meade MD
--- NOTE | 2017-05-09 01:51 | DS ---
CHIEF COMPLAINT: Fever, not feeling well. HISTORY OF PRESENT ILLNESS: Jacob Meyer is a 72-year-old male with past medical history of anemia, hypertension, diabetes mellitus, sinusitis, status post pacemaker, status post laminectomy on 03/22/2017 was getting rehabilitation and started high-grade fever. The patient noted fever which began last night with a temperature of 101, then the patient was transferred to [facility]. The patient was diagnosed with multilobar pneumonia. ID consult called with Dr. Orellana and Pulmonary Dr. Aguilera, got Rocephin, majano-cultures were negative. Plan is to complete 7 days of Rocephin. The patient was always complaining of back pain and lumbar spine CT was done, reviewed by me. The patient started delirious, altered mental status. Discussion done with the family. Neurology consult called and Psych consult called. All pain medications were put on hold. The patient's mental level came back. Psychiatrist Dr. Jessica Meade saw the patient and admit to the Neurologist that this is a sick delirious and pain medication side effects. Now, the patient improved, back to his baseline, discharged to [facility] for continuity of care for completion of Rocephin for 7 days and physical therapy. PAST MEDICAL HISTORY: History of anemia, hypertension, diabetes mellitus, sinusitis, status post pacemaker, status post laminectomy on 03/22/2017. FAMILY HISTORY: Father and mother, noncontributory. HABITS: Never smoked. No drugs. No ethanol. ALLERGIES: THE PATIENT IS NOT ALLERGIC WITH ANY MEDICATIONS. HOME MEDICATIONS: Lipitor, Dulcolax, Neurontin, insulin, Lidoderm patch, Lopressor, Protonix, Zantac, Janumet. REVIEW OF SYSTEMS: The patient is seen and examined on the bedside, looking comfortable, back to his baseline. No nausea, vomiting, or diarrhea. No hematuria or hematochezia. No headache or dizziness. No swelling of the legs. No fever or chills. PHYSICAL EXAMINATION: VITAL SIGNS: Temperature 98.7, pulse 96, blood pressure 145/79, respiratory rate 17. HEENT: Head; normocephalic and atraumatic. Eyes; PERRLA. Extraocular muscles intact. Conjunctivae clear. Nose patent. Mucous membranes moist. NECK: Supple. No carotid bruits, JVD, or thyromegaly. CHEST: Bilaterally symmetrical. HEART: S1 and S2 positive. LUNGS: Clear to auscultation. ABDOMEN: Soft. Bowel sounds positive. No organomegaly. EXTREMITIES: No edema. No cyanosis. NEUROLOGIC: The patient is awake and alert. Moving all four extremities. No focal deficits. LABORATORY DATA: White blood cell is 6.4, hemoglobin 9.4, hematocrit 29.1, and platelets 325. Glucose 152, sodium 139, potassium 3.6, BUN 19, and creatinine 1.0. ASSESSMENT AND PLAN: Iron deficiency, multilobar pneumonia, got antibiotics from Dr. Lucas Orellana and Dr. Aguilera. Plan is to complete 7 days course of antibiotic. Seen by Dr. Jessica Meade for delirium but came back on the baseline, seen by the Neurologist also. Has lumbosacral radiculopathy, went for laminectomy, but still has pain. Now improved, send back to rehab for continued care and physical therapy. Will follow up there. Sandra Espino MD
== END 2017-05-07 14:33 | DRG 193 ==
LOC: ED 16:56 → ERH 18:54 → 3RSO 20:59
PROVIDERS: ADMIT Internal Medicine; ATTEND Internal Medicine
DX: J18.9 Pneumonia, unspecified organism (principal); G92 Toxic encephalopathy; K80.21 Calculus of gallbladder without cholecystitis with obstruction; E11.65 Type 2 diabetes mellitus with hyperglycemia; E83.39 Other disorders of phosphorus metabolism; I10 Essential (primary) hypertension; M51.16 Intervertebral disc disorders with radiculopathy, lumbar region; I49.5 Sick sinus syndrome; D50.9 Iron deficiency anemia, unspecified; Z91.81 History of falling; J32.9 Chronic sinusitis, unspecified; N40.0 Benign prostatic hyperplasia without lower urinary tract symptoms; K21.9 Gastro-esophageal reflux disease without esophagitis; M48.061 Spinal stenosis, lumbar region without neurogenic claudication; R41.0 Disorientation, unspecified; T42.75XA Adverse effect of unspecified antiepileptic and sedative-hypnotic drugs, initial encounter; T40.2X5A Adverse effect of other opioids, initial encounter; N28.9 Disorder of kidney and ureter, unspecified; Y95 Nosocomial condition; Z79.4 Long term (current) use of insulin; Z95.0 Presence of cardiac pacemaker